=== PATIENT | male | born 1945 | race Caucasian/White ===

== ENCOUNTER 2021-03-15 14:06 | Inpatient (IN) ==
[2021-03-15] MEDS ORDERED: DEXAMETHASONE 10 MG/ML VIAL IV ONE (14:16)
[2021-03-15] MEDS ORDERED: KETOROLAC 30 MG/ML VIAL IV ONE (14:16)
[2021-03-15] MEDS ORDERED: 0.9 % SODIUM CHLORIDE 1,000 ML IV ONE ×2 (14:42→15:54)
[2021-03-15] MEDS ORDERED: ALBUTEROL SULFATE 200 PUFF INHALER INH ONE (14:59)
--- NOTE | 2021-03-15 14:59 | Emergency Department Note ---
SOB HPI General Chief Complaint: Shortness of Breath/Dyspnea Stated Complaint: Shortness of breath Time Seen by Provider: 03/15/21 14:08 Source: patient and RN notes reviewed Mode of arrival: ambulatory Limitations: no limitations History of Present Illness HPI Narrative: Narrative: 75-year-old male complaining of severe shortness of breath. 75-year-old male complaining of worsening shortness of breath x5 days. He was exposed to Covid 5 days ago. He has not been vaccinated. Complains of shortness of breath with fevers and chills cough nonproductive sputum worsening today to the point where he can only speak 1-2 word sentences. Complaint: shortness of breath Onset (ago): day(s) (5) Context: recent illness Severity: severe Consistency/Duration: constant Improves with: oxygen Worsens with: coughing Treatment prior to arrival: oxygen Related Data Allergies Allergy/AdvReac Type Severity Reaction Status Date / Time No Known Drug Allergies Allergy Unverified 03/15/21 14:07 Review of Systems ROS ROS Narrative: Narrative: Limitations: ROS unobtainable due to patients medical condition [facility] Narrative Patient History Narrative: Narrative: Medical/Surgical/Family History All Active Problems (Updated 03/15/21 @ 15:54 by Jaxson Han MD) Pneumonia due to 2019 novel coronavirus (Acute) Acute renal insufficiency (Acute) Elevated troponin (Acute) Hypoxia (Acute) Anemia (Acute) Social History Smoking Status: Unknown if ever smoked Exam Narrative Narrative: Narrative: General Limitations: no limitations General appearance: Present alert, in distress, malaise and obese Head Head: Present atraumatic, normocephalic and normal inspection Eye Eye: Present normal appearance, PERRL and EOMI ENT ENT: Present normal exam and mucous membranes dry Neck Neck: Present normal inspection and full ROM Chest Chest: Present normal inspection; Absent tenderness Respiratory Respiratory: Present respiratory distress, wheezes and decreased breath sounds Cardiovascular Cardiovascular: Present regular rate, normal rhythm and systolic murmur Adbominal Abdominal: Present soft; Absent distention, tenderness, guarding and rebound Extremities Extremities: Present normal inspection, full ROM, pedal edema and other (Chronic stasis changes to bilateral lower extremities); Absent tenderness, normal capillary refill and pretibial edema Back Back: Present normal inspection; Absent CVA tenderness (R) and CVA tenderness (L) Neurological Neurological: Present alert Psychiatric Psychiatric: Present agitated and anxious Skin Skin: Present rash and erythema Course Vital Signs Vital signs: Vital Signs Temperature 103.3 F H 03/15/21 14:07 Pulse Rate 77 03/15/21 14:07 Respiratory Rate 30 H 03/15/21 14:07 Blood Pressure 125/70 03/15/21 14:07 Pulse Oximetry (%) 96 03/15/21 14:07 Temperature 103.3 F H 03/15/21 14:07 Pulse Rate 62 03/15/21 15:14 Respiratory Rate 27 H 03/15/21 15:14 Blood Pressure 93/51 03/15/21 15:14 Pulse Oximetry (%) 93 03/15/21 15:14 MDM MDM Narrative Medical decision making narrative: Narrative: 75-year-old male who is hypoxic slightly hypotensive complaining of shortness of breath after Covid exposure 5 days ago with positive Covid. Chest x-ray shows Covid pneumonia cannot rule out congestive heart failure. He has mild anemia with an H&H of 12.9 and 38.8. Low blood sugar at 64 received p.o. juice. His BUN is 74 to a creatinine of 3.5 indicating acute renal insufficiency and dehydration. Patient received a liter of IV normal saline BMP is pending. Lactate is normal troponin is elevated at 0.04. Believe this represents cardiac leak he also has acute renal insufficiency I would elevate his troponin. Patient will require admission for IV fluids oxygenation and to monitor his renal insufficiency hypoxia and hypotension. Differential Diagnosis Differential Diagnosis: Pneumonia, Covid pneumonia, Covid, congestive heart failure ACS. Lab Data Lab results reviewed: Yes I reviewed the patient's lab results. Result diagrams: 03/15/21 14:24 03/15/21 14:23 Labs: Lab Results 03/15/21 03/15/21 Range/Units 14:23 14:24 WBC 5.8 (4.5-11.0) K/mcL RBC 4.22 L (4.63-6.08) M/mcL Hgb 12.9 L (13.7-17.5) g/dL Hct 38.8 L (40.1-51.0) % MCV 91.9 (80.0-100.0) fL MCH 30.6 (26.0-34.0) pg MCHC 33.2 (31.0-36.0) g/dL RDW 13.8 (11.5-14.5) % Plt Count 142 (140-440) K/mcL MPV 10.8 H (7.4-10.4) fL Neut % (Auto) 85.9 H (38.0-78.0) % Lymph % (Auto) 7.5 L (15.5-49.0) % [place] % (Auto) 5.9 (1.0-12.0) % Eos % (Auto) 0.5 (0.0-7.0) % Baso % (Auto) 0.2 (0.0-2.0) % Lymph # (Auto) 0.43 L (1.50-4.80) K/mcL [place] # (Auto) 0.34 (0.10-0.90) K/mcL Eos # (Auto) 0.03 (0.00-0.70) K/mcL Baso # (Auto) 0.01 (0.00-0.30) K/mcL Absolute Neutrophils 4.95 (1.80-8.00) K/mcL Sodium 133 (133-145) mmol/L Potassium 4.4 (3.3-5.1) mmol/L Chloride 95 L (96-108) mmol/L Carbon Dioxide 19 L (22-30) mmol/L Anion Gap 19.0 H (8.0-16.0) BUN 74 H (8-23) mg/dL Creatinine 3.5 H (0.7-1.2) mg/dL GFR Calculation 16 Glucose 64 L (70-105) mg/dL Calcium 8.3 L (8.6-10.4) mg/dL Total Bilirubin 0.5 (0.1-1.0) mg/dL AST 116 H (<40) U/L ALT 34 (<40) U/L Alkaline Phosphatase 46 (39-117) U/L Total Protein 7.6 (5.9-8.4) gm/dL Albumin 3.6 (3.2-5.2) gm/dL Globulin 4.0 H (2.2-3.7) gm/dL Albumin/Globulin Ratio 0.9 L (1.0-2.3) ED POC Tests ED POC Tests: IVAN - SARS Antigen Positive ABG on 15 L nonrebreather pH is 7.46 PCO2 of 27 PO2 of 72 bicarb of 19.2 Radiology Data Radiology results reviewed: Yes I reviewed the patient's radiology results. Radiology results narrative: Bilateral Covid pneumonia CXR IMPRESSION: Moderate pneumonia. Congestive heart failure cannot be excluded. Interpreted and Authenticated by: Guilherme Felipe 03/15/21 EKG Data EKG #1: EKG attestation: Yes I reviewed and interpreted this EKG. and Yes There are no EKG findings of acute coronary syndrome Rate: normal and bradycardia (50) Rhythm: A.Fib Q waves: III Ectopy: PVC Interpretation: no acute changes Pulse Oximetry Data Pulse Ox %: 95 Interpretation: 95% on 15 L nonrebreather is hypoxic. Discharge Plan Patient/Caregiver Discharge Instructions Pt seen by PIPELINE INTEGRITY ENGINEER/PA only: No Clinical Impression: Pneumonia due to 2019 novel coronavirus, Acute renal insufficiency, Elevated troponin, Hypoxia, Anemia Patient Disposition: Xfer As Inpt ([facility]) Follow up with: Tristan Palencia DO [Primary Care Provider] -
[2021-03-15 15:04] LABS: Basophils # (Auto) 0.01 K/mcL (0.00-0.30); Basophils % (Auto) 0.2 % (0.0-2.0); Eosinophils # (Auto) 0.03 K/mcL (0.00-0.70); Eosinophils % (Auto) 0.5 % (0.0-7.0); Hematocrit 38.8 % (40.1-51.0); Hemoglobin 12.9 g/dL (13.7-17.5); Lymphocytes # (Auto) 0.43 K/mcL (1.50-4.80); Lymphocytes % (Auto) 7.5 % (15.5-49.0); Mean Cell Volume 91.9 fL (80.0-100.0); Mean Corpuscular HGB Conc 33.2 g/dL (31.0-36.0); Mean Platelet Volume 10.8 fL (7.4-10.4); Monocytes # (Auto) 0.34 K/mcL (0.10-0.90); Monocytes % (Auto) 5.9 % (1.0-12.0); Neutrophils % (Auto) 85.9 % (38.0-78.0); Platelet Count 142 K/mcL (140-440); RBC 4.22 M/mcL (4.63-6.08); Red Cell Distribution Width 13.8 % (11.5-14.5); WBC 5.8 K/mcL (4.5-11.0)
--- NOTE | 2021-03-15 15:04 | XRay Report ---
HISTORY: Dyspnea FINDINGS: There are diffuse alveolar opacities throughout both lungs with the greatest involvement in the right lower lobe. Lung volumes are normal. There is no pleural effusion. Heart size is within normal limits. Patient may have underlying COPD. IMPRESSION: Moderate pneumonia. Congestive heart failure cannot be excluded. Interpreted and Authenticated by: Guilherme Felipe 03/15/21
[2021-03-15 15:27] LABS: ALT/SGPT 34 U/L (<40); AST/SGOT 116 U/L (<40); Albumin 3.6 gm/dL (3.2-5.2); Albumin/Globulin Ratio 0.9 (1.0-2.3); Alkaline Phosphatase 46 U/L (39-117); Bilirubin,Total 0.5 mg/dL (0.1-1.0); Blood Urea Nitrogen 74 mg/dL (8-23); Calcium 8.3 mg/dL (8.6-10.4); Carbon Dioxide 19 mmol/L (22-30); Chloride 95 mmol/L (96-108); Glomerular Filtration Rate 16; Glucose 64 mg/dL (70-105)
--- NOTE | 2021-03-15 16:44 | Internal Med History&Physical ---
HPI History of Present Illness Patient information: Note initiated : 03/15/21 at 4:40 pm Service Date, if different from initiated Date: [] Patient: Toni Thornton a 75 y/o M admitted on for Shortness of breath. Chief Complaint: [CoVID pneumonia] History of present illness: Mr. Thornton is a 75 year old M history of CAD status post 19 stent placement, type 2 diabetes mellitus, bladder cancer with right kidney involvement status post right nephrectomy, presenting with 1 week history of general body weakness, nonproductive cough, and decreased appetite. He is not being vaccinated against Covid pneumonia. Over the past week, he experienced general body weakness, nonproductive cough, and decreased appetite. He is also committing of generalized body aches. He denies shortness of breath. He denies respiratory wheezing. He denies fever, chills, or diaphoresis. Signs at ED presentation significant for tachypnea with rate of breathing in the mid 30s as well as fever with T-max of 39.6. Oxygen desaturated to the 80s and he was being placed on Nonrebreather oxygen. He was being tested positive for Covid pneumonia. Labs significant for lack of leukocytosis with WBC 5.8. Serum BUN/creatinine 724 and 3.5, respectively with unknown baseline. Serum glucose level 64. Chest x-ray showing typical findings of Covid pneumonia. Constitutional Constitutional: Present fever(s) and weakness; Absent chills, excessive sweating and fatigue Additional comments: loss of appetite EENT Eyes: Absent blurry vision, change in vision, loss of vision and other visual disturbances Ears: Absent decreased hearing and tinnitus Nose, mouth and throat: Absent abnormal hearing, dry mouth, headache(s), nasal congestion and sore throat Cardiovascular Cardiovascular: Absent chest pain, chest pain at rest, edema, irregular heart rhythm and palpatations Respiratory Respiratory: Present cough; Absent dyspnea, wheezing and excessive phlegm production Gastrointestinal Gastrointestinal: Absent abdominal pain, constipation, diarrhea, nausea and vomiting Musculoskeletal Musculoskeletal: Present muscle cramps and muscle weakness; Absent back pain, deformity, limited range of motion and numbness Integumentary Integumentary: Absent lesions, rash and wounds Neurological Neurological: Absent focal weakness, headache(s) and numbness Psychiatric Psychiatric: Absent anxiety, depression and hallucinations PFSH PFSH All Active Problems (Updated 09/11/21 @ 16:47 by Nabeel Rogers MD) Acute respiratory failure with hypoxia (Acute) CAD (coronary artery disease) (Acute) Anemia, normocytic normochromic (Acute) Hypoglycemia associated with type 2 diabetes mellitus (Acute) Stage 2 acute kidney injury (Acute) Pneumonia due to 2019 novel coronavirus (Acute) Acute renal insufficiency (Acute) Elevated troponin (Acute) Hypoxia (Acute) Anemia (Acute) MEDS/ALLERGIES Home Medications and Allergies Allergies Allergy/AdvReac Type Severity Reaction Status Date / Time No Known Drug Allergies Allergy Unverified 03/15/21 14:07 EXAM Constitutional Vitals: Temp Pulse Resp BP Pulse Ox 39.6 C H 64 25 H 99/52 94 03/15/21 14:07 03/15/21 15:31 03/15/21 15:31 03/15/21 15:31 03/15/21 15:31 General appearance: cooperative, disheveled, mild distress and obese Head Head exam: Present atraumatic and normocephalic Eye Eye exam: Present EOMI and PERRL ENT ENT exam: Present mucous membranes moist, normal exam and normal external ear exam Additional comments: nonrebreather in place Neck Neck exam: Present normal inspection; Absent lymphadenopathy, tenderness and thyromegaly Respiratory Respiratory exam: Present rhonchi; Absent accessory muscle use, respiratory distress and wheezes Cardiovascular Cardiovascular exam: Present normal rate and rhythm; Absent JVD GI/Abdominal GI/Abdominal exam: Present normal bowel sounds and soft; Absent organomegaly and tenderness Rectal Rectal exam: Present deferred Extremities Exam Extremities exam: Present full ROM, normal capillary refill and normal inspection; Absent tenderness Neurological Exam Neurological exam: Present alert, CN II-XII intact and oriented X3; Absent motor sensory deficit Psychiatric Psychiatric exam: Present normal affect and normal mood; Absent anxious and depressed Skin Skin exam: Present dry and intact DATA Data Completed and Pending Labs: Labs from last 24 hours 03/15/21 03/15/21 03/15/21 14:54 14:24 14:24 WBC 5.8 RBC 4.22 L Hgb 12.9 L Hct 38.8 L MCV 91.9 MCH 30.6 MCHC 33.2 RDW 13.8 Plt Count 142 MPV 10.8 H Neut % (Auto) 85.9 H Lymph % (Auto) 7.5 L [place] % (Auto) 5.9 Eos % (Auto) 0.5 Baso % (Auto) 0.2 Lymph # (Auto) 0.43 L [place] # (Auto) 0.34 Eos # (Auto) 0.03 Baso # (Auto) 0.01 Absolute Neutrophils 4.95 VBG Lactic Acid 1.1 Sodium Potassium Chloride Carbon Dioxide Anion Gap BUN Creatinine GFR Calculation Glucose Calcium Total Bilirubin AST ALT Alkaline Phosphatase Troponin T 0.04 H* NT-Pro-B Natriuret Pep Total Protein Albumin Globulin Albumin/Globulin Ratio 03/15/21 03/15/21 14:23 14:23 WBC RBC Hgb Hct MCV MCH MCHC RDW Plt Count MPV Neut % (Auto) Lymph % (Auto) [place] % (Auto) Eos % (Auto) Baso % (Auto) Lymph # (Auto) [place] # (Auto) Eos # (Auto) Baso # (Auto) Absolute Neutrophils VBG Lactic Acid Sodium 133 Potassium 4.4 Chloride 95 L Carbon Dioxide 19 L Anion Gap 19.0 H BUN 74 H Creatinine 3.5 H GFR Calculation 16 Glucose 64 L Calcium 8.3 L Total Bilirubin 0.5 AST 116 H ALT 34 Alkaline Phosphatase 46 Troponin T NT-Pro-B Natriuret Pep 581.5 H Total Protein 7.6 Albumin 3.6 Globulin 4.0 H Albumin/Globulin Ratio 0.9 L A/P Assessment and plan (1) Pneumonia due to 2019 novel coronavirus: Status: Acute (2) Stage 2 acute kidney injury: Status: Acute (3) Hypoglycemia associated with type 2 diabetes mellitus: Status: Acute (4) Anemia, normocytic normochromic: Status: Acute (5) CAD (coronary artery disease): Status: Acute (6) Acute respiratory failure with hypoxia: Status: Acute Narrative A/P Narrative: Assessment and Plans: 1. Acute respiratory failure with hypoxia associated with CoVID pneumonia: Admit to inpatient PCU Isolation: airborne and contact Inflammatory markers CXR every few days cbc w/ auto diff in the AM to trend WBC Blood culture Oxygen therapy titrate to achieve spo2>=92% Prone Remdesivir contraindicated in face of acute kidney injury and poor kidney fu nctions Dexamethasone Heparin Robitussin DM PRN cough DuoNEB NEB PRN wheezing Tylenol PRN fever 2. T2DM with hypoglycemia: HgA1c Hold any oral hypoglycemics Hold any scheduled insulin Low dose SSI AC HS Accu Chek AC HS Hypoglycemia protocol Diabetic diet 3. h/o CAD s/p 9 cardiac stents: ASA Statin 4. Stage 2 acute kidney injury: Unknown baseline serum Cr level Avoid nephrotoxic agents NS@100cc/hr CMP in the AM to trend kidney functions 5. Anemia, normocytic normochromic: cbc w/ auto diff in the AM to trend H/H; transfuse pRBC if hemoglobin <7.0, active bleeding, or symptomatic GI ppx: not currently indicated DVT ppx: Heparin Code status: Full Prognosis: guarded Disposition: inpatient PCU Time Spent With Patient Time: Total time spent is greater than 50% in coordination of care (as documented) at patient's floor/unit and/or counseling patient: Total time spent with greater than 50% in coordination of care (as documented) at patient's floor/unit and/or counseling patient:: Greater than 35 minutes
[2021-03-15] MEDS ORDERED: DEXTROSE 50% 50 ML VIAL IV PRN (17:22)
[2021-03-15] MEDS ORDERED: LACTULOSE 20 GM/30 ML ORAL.SOL PO PRN (17:22)
[2021-03-15] MEDS ORDERED: SENNOSIDES 1 TABLET PO PRN (17:22)
[2021-03-15] MEDS ORDERED: guaiFENesin/DEXTROMETHORPHAN ORAL SOL PO PRN (17:22)
[2021-03-15] MEDS ORDERED: IPRATROPIUM/ALBUTEROL 3 ML AMPUL.NEB NEB PRN (17:22)
[2021-03-15] MEDS ORDERED: DEXTROSE 31 GM ORAL.SUSP PO PRN (17:22)
[2021-03-15] MEDS ORDERED: ONDANSETRON 4 MG/2 ML VIAL IV PRN (17:22)
[2021-03-15 18:16] LABS: ALT/SGPT 35 U/L (<40); AST/SGOT 118 U/L (<40); Albumin 3.4 gm/dL (3.2-5.2); Albumin/Globulin Ratio 0.8 (1.0-2.3); Alkaline Phosphatase 46 U/L (39-117); Bilirubin,Total 0.4 mg/dL (0.1-1.0); Blood Urea Nitrogen 75 mg/dL (8-23); Calcium 8.2 mg/dL (8.6-10.4); Carbon Dioxide 18 mmol/L (22-30); Chloride 96 mmol/L (96-108); Globulin 4.3 gm/dL (2.2-3.7); Glomerular Filtration Rate 16; Glucose 64 mg/dL (70-105); Lactate Dehydrogenase 802 U/L (135-225)
[2021-03-15 18:32] LABS: Ferritin > 2000.0 ng/mL (30.0-400.0)
[2021-03-15] MEDS: INSULIN LISPRO 1 UNIT/0.01 ML UNIT SQ SCH ×2 (18:37→21:14)
[2021-03-15 18:46] LABS: Estimated Average Glucose(eAG) 151 mg/dL; Hemoglobin A1C 6.9 % Hgb (4.0-6.0)
[2021-03-15 19:36] LABS: INR 1.1 (0.9-1.1); Prothrombin Time 14.4 sec (11.9-14.5)
[2021-03-15] MEDS: 0.9 % SODIUM CHLORIDE 1,000 ML IV SCH (21:07)
[2021-03-15] MEDS: DOCUSATE SODIUM 100 MG CAPSULE PO SCH (21:08)
[2021-03-15] MEDS: HEPARIN 5,000 UNIT/ML VIAL SQ SCH (21:14)
[2021-03-15] MEDS: 0.9 % SODIUM CHLORIDE 10 ML SYRINGE IV SCH (21:15)
[2021-03-15] MEDS ORDERED: INSULIN LISPRO 1 UNIT/0.01 ML UNIT SQ ONE (21:16)
[2021-03-15] MEDS ORDERED: HEPARIN 5,000 UNIT/ML VIAL ONE (21:16)
[2021-03-15 22:05] LABS: Appearance,Urine HAZY (Clear); Bilirubin,Urine Negative (Negative); Color,Urine YELLOW; Culture Indicated,Urine No; Glucose,Urine (UA) Negative (Negative); Ketones,Urine Negative (Negative); Leukocyte Esterase,Urine Negative /ug (Negative); Mucus,Urine FEW /hpf; Nitrate,Urine Negative (Negative); Protein,Urine 30 mg/dL (Negative); Specific Gravity,Urine 1.009 (1.000-1.035); Urine Blood 0.03 mg/dL (Negative); Urine RBC 0 /hpf (0-3); Urine Squamous Epithelial Cell < 1 /hpf (0-4); Urine WBC 1 /hpf (0-4); Urobilinogen,Urine Negative
[2021-03-16] MEDS: 0.9 % SODIUM CHLORIDE 1,000 ML IV SCH ×5 (03:30→21:52)
[2021-03-16] MEDS: 0.9 % SODIUM CHLORIDE 10 ML SYRINGE IV SCH ×3 (05:31→21:28)
[2021-03-16] MEDS: INSULIN LISPRO 1 UNIT/0.01 ML UNIT SQ SCH ×4 (07:15→21:27)
[2021-03-16 07:23] LABS: ALT/SGPT 30 U/L (<40); AST/SGOT 96 U/L (<40); Albumin 2.8 gm/dL (3.2-5.2); Albumin/Globulin Ratio 0.8 (1.0-2.3); Alkaline Phosphatase 39 U/L (39-117); Bilirubin,Total 0.3 mg/dL (0.1-1.0); Blood Urea Nitrogen 63 mg/dL (8-23); Calcium 7.9 mg/dL (8.6-10.4); Carbon Dioxide 19 mmol/L (22-30); Chloride 106 mmol/L (96-108); Globulin 3.6 gm/dL (2.2-3.7); Glomerular Filtration Rate 21; Glucose 183 mg/dL (70-105)
[2021-03-16 08:34] LABS: Basophils # (Auto) 0 K/mcL (0.00-0.30); Basophils % (Auto) 0 % (0.0-2.0); Eosinophils # (Auto) 0 K/mcL (0.00-0.70); Eosinophils % (Auto) 0 % (0.0-7.0); Hematocrit 38.2 % (40.1-51.0); Hemoglobin 11.9 g/dL (13.7-17.5); Lymphocytes # (Auto) 0.43 K/mcL (1.50-4.80); Lymphocytes % (Auto) 9.4 % (15.5-49.0); Mean Cell Volume 98.7 fL (80.0-100.0); Mean Corpuscular HGB Conc 31.2 g/dL (31.0-36.0); Mean Platelet Volume 10.9 fL (7.4-10.4); Monocytes # (Auto) 0.26 K/mcL (0.10-0.90); Monocytes % (Auto) 5.7 % (1.0-12.0); Neutrophils % (Auto) 84.9 % (38.0-78.0); Platelet Count 117 K/mcL (140-440); RBC 3.87 M/mcL (4.63-6.08); Red Cell Distribution Width 14.1 % (11.5-14.5); WBC 4.6 K/mcL (4.5-11.0)
[2021-03-16] MEDS: DEXAMETHASONE 10 MG/ML VIAL IV SCH (08:39)
[2021-03-16] MEDS: ASPIRIN 81 MG TAB.CHEW PO SCH (08:39)
[2021-03-16] MEDS: DOCUSATE SODIUM 100 MG CAPSULE PO SCH ×2 (08:39→21:27)
[2021-03-16] MEDS: HEPARIN 5,000 UNIT/ML VIAL SQ SCH ×2 (08:40→21:27)
--- NOTE | 2021-03-16 08:53 | Internal Med Progress Note ---
SUBJECTIVE Subjective Patient information: Note initiated : 03/16/21 at 8:50 am Service Date, if different from initiated Date: [] Patient: Toni Thornton a 75 y/o M admitted on 03/15/21 for Shortness of breath. Chief Complaint: [CoVID pneumonia] Interval history: History of present illness: Mr. Thornton is a 75 year old M history of CAD status post 19 stent placement, type 2 diabetes mellitus, bladder cancer with right kidney involvement status post right nephrectomy, presenting with 1 week history of general body weakness, nonproductive cough, and decreased appetite. He is not being vaccinated against Covid pneumonia. Over the past week, he experienced general body weakness, nonproductive cough, and decreased appetite. He is also committing of generalized body aches. He denies shortness of breath. He denies respiratory wheezing. He denies fever, chills, or diaphoresis. Signs at ED presentation significant for tachypnea with rate of breathing in the mid 30s as well as fever with T-max of 39.6. Oxygen desaturated to the 80s and he was being placed on Nonrebreather oxygen. He was being tested positive for Covid pneumonia. Labs significant for lack of leukocytosis with WBC 5.8. Serum BUN/creatinine 724 and 3.5, respectively with unknown baseline. Serum glucose level 64. Chest x-ray showing typical findings of Covid pneumonia. 03/16: Afebrile overnight. Been on CPAP. Much improved degree of SOB. c/o nonproductive cough without sputum production. Denies any respiratory wheezing. Denies any fever or chills. Denies any chest pain. Constitutional Vitals: Vital Signs Temp Pulse Resp BP Pulse Ox 36.3 C 57 L 21 132/56 96 03/16/21 08:01 03/16/21 07:23 03/16/21 08:01 03/16/21 08:01 03/16/21 08:01 Period Temp Pulse Resp BP Sys/[place] Pulse Ox Last 24 Hr 36.3 C-39.6 C 54-86 7-32 71-147/46-70 89-97 Intake and Output 03/15/21 03/16/21 03/16/21 21:59 05:59 13:59 Intake Total 2000 400 1000 Output Total 450 600 200 Balance 1550 -200 800 Weight 99.382 kg Intake & Output: Intake & Output 03/15/21 03/16/21 03/16/21 21:59 05:59 13:59 Intake Total 1999 400 1000 Output Total 450 600 200 Balance 1550 -200 800 Weight 99.382 kg Intake: IV 1999 1000 Sodium Chloride 0.9% 1,000 ml @ 2000 1000 100 mls/hr IV .Q10H KIM Rx#: [id number] Oral 400 Output: Void Amount 450 600 200 Other: Meal Snack Percent of Meal Consumed 100% Feeding Ability Independent Urine Appearance Clear Clear Urine Color Straw Bright Yellow Bright Yellow Urine Odor Normal Normal General appearance: cooperative and no acute distress Head Head exam: Present atraumatic and normocephalic Eye Eye exam: Present EOMI and PERRL ENT ENT exam: Present mucous membranes moist, normal exam and normal external ear exam Additional comments: Nasal cannula in place Neck Neck exam: Present normal inspection; Absent lymphadenopathy, tenderness and thyromegaly Respiratory Respiratory exam: Present rhonchi; Absent accessory muscle use, respiratory distress and wheezes Cardiovascular Cardiovascular exam: Present normal rate and rhythm; Absent JVD GI/Abdominal GI/Abdominal exam: Present normal bowel sounds and soft; Absent organomegaly and tenderness Rectal Rectal exam: Present deferred Extremities Exam Extremities exam: Present full ROM, normal capillary refill and normal inspection; Absent tenderness Neurological Exam Neurological exam: Present alert, CN II-XII intact and oriented X3; Absent motor sensory deficit Psychiatric Psychiatric exam: Present normal affect and normal mood; Absent anxious and depressed Skin Skin exam: Present dry and intact OBJ DATA Labs CBC & Chem 7: 03/16/21 05:25 03/16/21 05:26 Labs: Abnormal Lab Results 03/16/21 03/16/21 03/15/21 05:26 05:25 21:15 RBC 3.87 L Hgb 11.9 L Hct 38.2 L Plt Count 117 L MPV 10.9 H Neut % (Auto) 84.9 H Lymph % (Auto) 9.4 L Lymph # (Auto) 0.43 L Fibrinogen D-Dimer Chloride Carbon Dioxide 19 L Anion Gap BUN 63 H Creatinine 2.8 H Glucose 183 H Hemoglobin A1c Calcium 7.9 L Ferritin AST 96 H Lactate Dehydrogenase Troponin T C-Reactive Protein NT-Pro-B Natriuret Pep Albumin 2.8 L Globulin Albumin/Globulin Ratio 0.8 L Procalcitonin Urine Appearance Hazy A Urine Protein 30 A Urine Mucus Few A 03/15/21 03/15/21 03/15/21 18:30 18:30 14:24 RBC Hgb Hct Plt Count MPV Neut % (Auto) Lymph % (Auto) Lymph # (Auto) Fibrinogen 640 H D-Dimer 1.64 H Chloride Carbon Dioxide Anion Gap BUN Creatinine Glucose Hemoglobin A1c Calcium Ferritin AST Lactate Dehydrogenase Troponin T 0.04 H* C-Reactive Protein NT-Pro-B Natriuret Pep Albumin Globulin Albumin/Globulin Ratio Procalcitonin Urine Appearance Urine Protein Urine Mucus 03/15/21 03/15/21 03/15/21 14:24 14:23 14:23 RBC 4.22 L Hgb 12.9 L Hct 38.8 L Plt Count MPV 10.8 H Neut % (Auto) 85.9 H Lymph % (Auto) 7.5 L Lymph # (Auto) 0.43 L Fibrinogen D-Dimer Chloride Carbon Dioxide 18 L Anion Gap 20.0 H BUN 75 H Creatinine 3.5 H Glucose 64 L Hemoglobin A1c 6.9 H Calcium 8.2 L Ferritin > 2000.0 H AST 118 H Lactate Dehydrogenase 802 H Troponin T C-Reactive Protein 10.70 H NT-Pro-B Natriuret Pep Albumin Globulin 4.3 H Albumin/Globulin Ratio 0.8 L Procalcitonin 0.32 H Urine Appearance Urine Protein Urine Mucus 03/15/21 03/15/21 14:23 14:23 RBC Hgb Hct Plt Count MPV Neut % (Auto) Lymph % (Auto) Lymph # (Auto) Fibrinogen D-Dimer Chloride 95 L Carbon Dioxide 19 L Anion Gap 19.0 H BUN 74 H Creatinine 3.5 H Glucose 64 L Hemoglobin A1c Calcium 8.3 L Ferritin AST 116 H Lactate Dehydrogenase Troponin T C-Reactive Protein NT-Pro-B Natriuret Pep 581.5 H Albumin Globulin 4.0 H Albumin/Globulin Ratio 0.9 L Procalcitonin Urine Appearance Urine Protein Urine Mucus Meds: Medications Acetaminophen (Acetaminophen 325 Mg Tablet) 650 mg PO Q6HP PRN; Protocol PRN Reason: Per Pain Protocol/Fever > 101 Albuterol/Ipratropium (Ipratropium/Albuterol 3 Ml Ampul.Neb) 3 ml NEB Q4HRT PRN PRN Reason: Wheezing Amlodipine Besylate (Amlodipine 10 Mg Tablet) 10 mg PO DAILY [facility] Aspirin (Aspirin 81 Mg Tab.Chew) 81 mg PO DAILY [facility] Last Admin: 03/16/21 08:39 Dose: 81 mg Documented by: Atenolol (Atenolol 50 Mg Tablet) 50 mg PO DAILY [facility] Atorvastatin Calcium (Atorvastatin 40 Mg Tablet) 40 mg PO DAILY [facility] Last Admin: 03/16/21 08:39 Dose: 40 mg Documented by: Clopidogrel Bisulfate (Clopidogrel 75 Mg Tablet) 75 mg PO QDAY [facility] Dexamethasone (Dexamethasone 10 Mg/Ml Vial) 6 mg IV DAILY [facility] Last Admin: 03/16/21 08:39 Dose: 6 mg Documented by: Dextrose (Dextrose 50% 50 Ml Vial) 0 ml IV UD PRN PRN Reason: Hypoglycemia Diagnostic Test (Pha) (Accu-Chek 1 Each Strip) [address] [facility] Last Admin: 03/16/21 07:14 Dose: 1 each Documented by: Docusate Sodium (Docusate Sodium 100 Mg Capsule) 100 mg PO BID [facility] Last Admin: 03/16/21 08:39 Dose: 100 mg Documented by: Furosemide (Furosemide 40 Mg Tablet) 40 mg PO BID [facility] Gabapentin (Gabapentin 100 Mg Capsule) 100 mg PO TID [facility] Glucose (Dextrose 31 Gm Oral.Susp) 15 gm PO PRN PRN PRN Reason: Hypoglycemia Guaifenesin (Guaifenesin/Dextromethorphan Oral [place]) 10 ml PO Q4HP PRN PRN Reason: Cough Heparin Sodium (Porcine) (Heparin 5,000 Unit/Ml Vial) 5,000 unit SQ Q12 [facility] Last Admin: 03/16/21 08:40 Dose: 5,000 unit Documented by: Sodium Chloride (Sodium Chloride 0.9%) 1,000 mls @ 100 mls/hr IV .Q10H [facility] Last Admin: 03/16/21 07:15 Dose: 100 mls/hr Documented by: Insulin Human Lispro (Insulin Lispro 1 Unit/0.01 Ml Unit) 0 unit SQ [facility]; Protocol Last Admin: 03/16/21 07:15 Dose: 1 units Documented by: Lactulose (Lactulose 20 Gm/30 Ml Oral.[place]) 10 gm PO DAILYP PRN PRN Reason: Constipation Non-Formulary Medication (Ticagrelor [Brilinta]) 60 mg PO BID [facility] Ondansetron HCl (Ondansetron 4 Mg/2 Ml Vial) 4 mg IV Q4HP PRN; Protocol PRN Reason: Nausea And Vomiting Pantoprazole Sodium (Pantoprazole 40 Mg Tablet) 40 mg PO DAILY [facility] Senna (Sennosides 1 Tablet) 2 tab PO HSP PRN PRN Reason: Constipation Simvastatin (Simvastatin 40 Mg Tablet) 40 mg PO DAILY [facility] Sodium Chloride (0.9 % Sodium Chloride 10 Ml Syringe) 10 ml IV Q8 [facility] Last Admin: 03/16/21 05:31 Dose: 10 ml Documented by: Tamsulosin HCl (Tamsulosin 0.4 Mg Capsule) 0.4 mg PO DAILY [facility] A/P Assessment and plan (1) Pneumonia due to 2019 novel coronavirus: Status: Acute (2) Stage 2 acute kidney injury: Status: Acute (3) Hypoglycemia associated with type 2 diabetes mellitus: Status: Acute (4) Anemia, normocytic normochromic: Status: Acute (5) CAD (coronary artery disease): Status: Acute (6) Acute respiratory failure with hypoxia: Status: Acute Narrative A/P Narrative: Assessment and Plans: 1. Acute respiratory failure with hypoxia associated with CoVID pneumonia: Stays in inpatient PCU Isolation: airborne and contact Inflammatory markers CXR every few days cbc w/ auto diff in the AM to trend WBC Blood culture Oxygen therapy titrate to achieve spo2>=92%, currently on CPAP Prone Remdesivir contraindicated in face of acute kidney injury and poor kidney functions Dexamethasone Heparin Robitussin DM PRN cough DuoNEB NEB PRN wheezing Tylenol PRN fever 2. T2DM with hypoglycemia: HgA1c Hold any oral hypoglycemics Hold any scheduled insulin Low dose SSI AC HS Accu Chek AC HS Hypoglycemia protocol Diabetic diet 3. h/o CAD s/p 9 cardiac stents: ASA Statin 4. Stage 2 acute kidney injury: Unknown baseline serum Cr level Avoid nephrotoxic agents NS@100cc/hr CMP in the AM to trend kidney functions 5. Anemia, normocytic normochromic: cbc w/ auto diff in the AM to trend H/H; transfuse pRBC if hemoglobin <7.0, active bleeding, or symptomatic GI ppx: not currently indicated DVT ppx: Heparin Code status: Full Prognosis: guarded Disposition: inpatient PCU Time Spent With Patient Time: Total time spent is greater than 50% in coordination of care (as documented) at patient's floor/unit and/or counseling patient: QUALITY VTE Deep Vein Thrombosis/Pulmonary Embolism Present on Admission: No
[2021-03-16] MEDS ORDERED: TICAGRELOR 60 MG PO SCH (09:00)
[2021-03-16] MEDS ORDERED: ATORVASTATIN 40 MG TABLET PO SCH (09:00)
[2021-03-16] MEDS: ATENOLOL 50 MG TABLET PO SCH (09:34)
[2021-03-16] MEDS: GABAPENTIN 100 MG CAPSULE PO SCH ×3 (09:34→21:26)
[2021-03-16] MEDS: amLODIPine 10 MG TABLET PO SCH (09:34)
[2021-03-16] MEDS: FUROSEMIDE 40 MG TABLET PO SCH ×2 (09:34→21:27)
[2021-03-16] MEDS: CLOPIDOGREL 75 MG TABLET PO SCH (09:34)
[2021-03-16] MEDS: TAMSULOSIN 0.4 MG CAPSULE PO SCH (09:34)
[2021-03-16] MEDS: PANTOPRAZOLE 40 MG TABLET PO SCH (09:35)
--- NOTE | 2021-03-16 18:53 | EKG ---
[facility] Test Date: 2021-03-15 Pat Name: Toni Thornton Department: ED Room: Gender: Male [employer]: : 1945 Requested By: Jaxson Han Order Number: [id number] Reading MD: Lukas Morgan Measurements Intervals Hermann Rate: 71 P: SC: QRS: 6 QRSD: 74 T: 35 QT: 404 QTc: 439 Interpretive Statements Sinus rhythm with PAC Electronically Signed On 03-16-2021 18:52:57 PDT by Lukas Morgan /store/[email or web address]/[id number]/[id number]
[2021-03-16] MEDS: Ticagrelor [Brilinta] 90 mg Tab PO SCH (21:24)
[2021-03-16] MEDS: SIMVASTATIN 40 MG TABLET PO SCH (21:27)
[2021-03-17] MEDS: 0.9 % SODIUM CHLORIDE 1,000 ML IV SCH ×4 (04:57→21:38)
[2021-03-17] MEDS: 0.9 % SODIUM CHLORIDE 10 ML SYRINGE IV SCH ×3 (04:57→21:37)
[2021-03-17] MEDS: ACETAMINOPHEN 325 MG TABLET PO PRN (07:42)
[2021-03-17] MEDS: PANTOPRAZOLE 40 MG TABLET PO SCH (07:42)
[2021-03-17] MEDS: INSULIN LISPRO 1 UNIT/0.01 ML UNIT SQ SCH ×5 (07:51→21:35)
[2021-03-17] MEDS ORDERED: DEXTROSE 31 GM ORAL.SUSP PO PRN (08:12)
[2021-03-17] MEDS ORDERED: DEXTROSE 50% 50 ML VIAL IV PRN (08:12)
--- NOTE | 2021-03-17 08:17 | Internal Med Progress Note ---
SUBJECTIVE Subjective Patient information: Note initiated : 03/17/21 at 8:12 am Service Date, if different from initiated Date: [] Patient: Toni Thornton a 75 y/o M admitted on 03/15/21 for Shortness of breath. Chief Complaint: [CoVID pneumonia] Interval history: History of present illness: Mr. Thornton is a 75 year old M history of CAD status post 19 stent placement, type 2 diabetes mellitus, bladder cancer with right kidney involvement status post right nephrectomy, presenting with 1 week history of general body weakness, nonproductive cough, and decreased appetite. He is not being vaccinated against Covid pneumonia. Over the past week, he experienced general body weakness, nonproductive cough, and decreased appetite. He is also committing of generalized body aches. He denies shortness of breath. He denies respiratory wheezing. He denies fever, chills, or diaphoresis. Signs at ED presentation significant for tachypnea with rate of breathing in the mid 30s as well as fever with T-max of 39.6. Oxygen desaturated to the 80s and he was being placed on Nonrebreather oxygen. He was being tested positive for Covid pneumonia. Labs significant for lack of leukocytosis with WBC 5.8. Serum BUN/creatinine 724 and 3.5, respectively with unknown baseline. Serum glucose level 64. Chest x-ray showing typical findings of Covid pneumonia. 03/16: Afebrile overnight. Been on CPAP. Much improved degree of SOB. c/o nonproductive cough without sputum production. Denies any respiratory wheezing. Denies any fever or chills. Denies any chest pain. 03/17: Afebrile overnight. Been on CPAP now with FiO2 60%. c/o mild SOB. c/o nonproductive cough without sputum production. Denies any respiratory wheezing. Denies any fever or chills. Denies any chest pain. Constitutional Vitals: Vital Signs Temp Pulse Resp BP Pulse Ox 36.8 C 63 20 147/71 94 03/17/21 08:02 03/17/21 06:02 03/17/21 08:02 03/17/21 08:02 03/17/21 08:02 Period Temp Pulse Resp BP Sys/[place] Pulse Ox Last 24 Hr 36.2 C-36.8 C 52-68 17-29 96-155/45-90 90-98 Intake and Output 03/16/21 03/17/21 03/17/21 21:59 05:59 13:59 Intake Total 1710 1200 Output Total 551 603 351 Balance 1159 597 -351 Weight 99.382 kg Intake & Output: Intake & Output 03/16/21 03/17/21 03/17/21 21:59 05:59 13:59 Intake Total 1710 1200 Output Total 551 603 351 Balance 1159 597 -351 Weight 99.382 kg Intake: Nourishment/Supplement quantity 240 (ml) IV 1000 1000 Sodium Chloride 0.9% 1,000 ml @ 1000 1000 100 mls/hr IV .Q10H [facility] Rx#: [id number] Oral 470 200 Output: Void Amount 550 600 350 # of times incontinent of urine 1 3 1 Other: Meal Dinner Percent of Meal Consumed 100% Feeding Ability Assist with Tray Set Up Nourishment/Supplement name Glucerna Urine Appearance Clear Clear Clear Urine Color Bright Yellow Bright Yellow Pale Urine Odor Normal Normal # Voids 1 General appearance: cooperative and no acute distress Head Head exam: Present atraumatic and normocephalic Eye Eye exam: Present EOMI and PERRL ENT ENT exam: Present mucous membranes moist, normal exam and normal external ear exam Additional comments: CPAP in place Neck Neck exam: Present normal inspection; Absent lymphadenopathy, tenderness and thyromegaly Respiratory Respiratory exam: Present rhonchi; Absent accessory muscle use, respiratory distress and wheezes Cardiovascular Cardiovascular exam: Present normal rate and rhythm; Absent JVD GI/Abdominal GI/Abdominal exam: Present normal bowel sounds and soft; Absent organomegaly and tenderness Rectal Rectal exam: Present deferred Extremities Exam Extremities exam: Present full ROM, normal capillary refill and normal inspection; Absent tenderness Neurological Exam Neurological exam: Present alert, CN II-XII intact and oriented X3; Absent motor sensory deficit Psychiatric Psychiatric exam: Present normal affect and normal mood; Absent anxious and depressed Skin Skin exam: Present dry and intact OBJ DATA Labs CBC & Chem 7: 03/16/21 05:25 03/16/21 05:26 Labs: Abnormal Lab Results 03/16/21 03/16/21 03/15/21 05:26 05:25 21:15 RBC 3.87 L Hgb 11.9 L Hct 38.2 L Plt Count 117 L MPV 10.9 H Neut % (Auto) 84.9 H Lymph % (Auto) 9.4 L Lymph # (Auto) 0.43 L Fibrinogen D-Dimer Chloride Carbon Dioxide 19 L Anion Gap BUN 63 H Creatinine 2.8 H Glucose 183 H Hemoglobin A1c Calcium 7.9 L Ferritin AST 96 H Lactate Dehydrogenase Troponin T C-Reactive Protein NT-Pro-B Natriuret Pep Albumin 2.8 L Globulin Albumin/Globulin Ratio 0.8 L Procalcitonin Urine Appearance Hazy A Urine Protein 30 A Urine Mucus Few A 03/15/21 03/15/21 03/15/21 18:30 18:30 14:24 RBC Hgb Hct Plt Count MPV Neut % (Auto) Lymph % (Auto) Lymph # (Auto) Fibrinogen 640 H D-Dimer 1.64 H Chloride Carbon Dioxide Anion Gap BUN Creatinine Glucose Hemoglobin A1c Calcium Ferritin AST Lactate Dehydrogenase Troponin T 0.04 H* C-Reactive Protein NT-Pro-B Natriuret Pep Albumin Globulin Albumin/Globulin Ratio Procalcitonin Urine Appearance Urine Protein Urine Mucus 03/15/21 03/15/21 03/15/21 14:24 14:23 14:23 RBC 4.22 L Hgb 12.9 L Hct 38.8 L Plt Count MPV 10.8 H Neut % (Auto) 85.9 H Lymph % (Auto) 7.5 L Lymph # (Auto) 0.43 L Fibrinogen D-Dimer Chloride Carbon Dioxide 18 L Anion Gap 20.0 H BUN 75 H Creatinine 3.5 H Glucose 64 L Hemoglobin A1c 6.9 H Calcium 8.2 L Ferritin > 2000.0 H AST 118 H Lactate Dehydrogenase 802 H Troponin T C-Reactive Protein 10.70 H NT-Pro-B Natriuret Pep Albumin Globulin 4.3 H Albumin/Globulin Ratio 0.8 L Procalcitonin 0.32 H Urine Appearance Urine Protein Urine Mucus 03/15/21 03/15/21 14:23 14:23 RBC Hgb Hct Plt Count MPV Neut % (Auto) Lymph % (Auto) Lymph # (Auto) Fibrinogen D-Dimer Chloride 95 L Carbon Dioxide 19 L Anion Gap 19.0 H BUN 74 H Creatinine 3.5 H Glucose 64 L Hemoglobin A1c Calcium 8.3 L Ferritin AST 116 H Lactate Dehydrogenase Troponin T C-Reactive Protein NT-Pro-B Natriuret Pep 581.5 H Albumin Globulin 4.0 H Albumin/Globulin Ratio 0.9 L Procalcitonin Urine Appearance Urine Protein Urine Mucus Meds: Medications Acetaminophen (Acetaminophen 325 Mg Tablet) 650 mg PO Q6HP PRN; Protocol PRN Reason: Per Pain Protocol/Fever > 101 Last Admin: 03/17/21 07:42 Dose: 650 mg Documented by: Albuterol/Ipratropium (Ipratropium/Albuterol 3 Ml Ampul.Neb) 3 ml NEB Q4HRT PRN PRN Reason: Wheezing Amlodipine Besylate (Amlodipine 10 Mg Tablet) 10 mg PO DAILY [facility] Last Admin: 03/16/21 09:34 Dose: 10 mg Documented by: Aspirin (Aspirin 81 Mg Tab.Chew) 81 mg PO DAILY [facility] Last Admin: 03/16/21 08:39 Dose: 81 mg Documented by: Atenolol (Atenolol 50 Mg Tablet) 50 mg PO DAILY [facility] Last Admin: 03/16/21 09:34 Dose: 50 mg Documented by: Clopidogrel Bisulfate (Clopidogrel 75 Mg Tablet) 75 mg PO QDAY [facility] Last Admin: 03/16/21 09:34 Dose: 75 mg Documented by: Dexamethasone (Dexamethasone 10 Mg/Ml Vial) 6 mg IV DAILY [facility] Last Admin: 03/16/21 08:39 Dose: 6 mg Documented by: Dextrose (Dextrose 50% 50 Ml Vial) 0 ml IV UD PRN PRN Reason: Hypoglycemia Diagnostic Test (Pha) (Accu-Chek 1 Each Strip) 1 each FS ACHS [facility] Last Admin: 03/17/21 07:48 Dose: 1 each Documented by: Docusate Sodium (Docusate Sodium 100 Mg Capsule) 100 mg PO BID [facility] Last Admin: 03/16/21 21:27 Dose: 100 mg Documented by: Furosemide (Furosemide 40 Mg Tablet) 40 mg PO BID [facility] Last Admin: 03/16/21 21:27 Dose: 40 mg Documented by: Gabapentin (Gabapentin 100 Mg Capsule) 100 mg PO TID [facility] Last Admin: 03/16/21 21:26 Dose: 100 mg Documented by: Glucose (Dextrose 31 Gm Oral.Susp) 15 gm PO PRN PRN PRN Reason: Hypoglycemia Guaifenesin (Guaifenesin/Dextromethorphan Oral [place]) 10 ml PO Q4HP PRN PRN Reason: Cough Heparin Sodium (Porcine) (Heparin 5,000 Unit/Ml Vial) 5,000 unit SQ Q12 [facility] Last Admin: 03/16/21 21:27 Dose: 5,000 unit Documented by: Sodium Chloride (Sodium Chloride 0.9%) 1,000 mls @ 100 mls/hr IV .Q10H [facility] Last Admin: 03/17/21 04:57 Dose: 100 mls/hr Documented by: Lactulose (Lactulose 20 Gm/30 Ml Oral.[place]) 10 gm PO DAILYP PRN PRN Reason: Constipation Ticagrelor [Brilinta (] 90 Mg Tab) 90 mg PO BID [facility] Last Admin: 03/16/21 21:24 Dose: 90 mg Documented by: Ondansetron HCl (Ondansetron 4 Mg/2 Ml Vial) 4 mg IV Q4HP PRN; Protocol PRN Reason: Nausea And Vomiting Pantoprazole Sodium (Pantoprazole 40 Mg Tablet) 40 mg PO QAMAC [facility] Last Admin: 03/17/21 07:42 Dose: 40 mg Documented by: Senna (Sennosides 1 Tablet) 2 tab PO HSP PRN PRN Reason: Constipation Simvastatin (Simvastatin 40 Mg Tablet) 40 mg PO HS [facility] Last Admin: 03/16/21 21:27 Dose: 40 mg Documented by: Sodium Chloride (0.9 % Sodium Chloride 10 Ml Syringe) 10 ml IV Q8 [facility] Last Admin: 03/17/21 04:57 Dose: 10 ml Documented by: Tamsulosin HCl (Tamsulosin 0.4 Mg Capsule) 0.4 mg PO DAILY [facility] Last Admin: 03/16/21 09:34 Dose: 0.4 mg Documented by: A/P Assessment and plan (1) Pneumonia due to 2019 novel coronavirus: Status: Acute (2) Stage 2 acute kidney injury: Status: Acute (3) Hypoglycemia associated with type 2 diabetes mellitus: Status: Acute (4) Anemia, normocytic normochromic: Status: Acute (5) CAD (coronary artery disease): Status: Acute (6) Acute respiratory failure with hypoxia: Status: Acute Narrative A/P Narrative: Assessment and Plans: 1. Acute respiratory failure with hypoxia associated with CoVID pneumonia: Stays in inpatient PCU Isolation: airborne and contact Inflammatory markers CXR every few days cbc w/ auto diff in the AM to trend WBC Blood culture Oxygen therapy titrate to achieve spo2>=92%, currently on CPAP Prone f/u kidney functions in order to consider starting Remdesivir Dexamethasone Heparin Robitussin DM PRN cough DuoNEB NEB PRN wheezing Tylenol PRN fever 2. T2DM with hypoglycemia: HgA1c Hold any oral hypoglycemics Hold any scheduled insulin High dose SSI AC HS for better glycemic coverage Accu Chek AC HS Hypoglycemia protocol Diabetic diet 3. h/o CAD s/p 9 cardiac stents: ASA Statin 4. Stage 2 acute kidney injury: Unknown baseline serum Cr level Avoid nephrotoxic agents NS@100cc/hr CMP in the AM to trend kidney functions 5. Anemia, normocytic normochromic: cbc w/ auto diff in the AM to trend H/H; transfuse pRBC if hemoglobin <7.0, active bleeding, or symptomatic GI ppx: not currently indicated DVT ppx: Heparin Code status: Full Prognosis: guarded Disposition: inpatient PCU Time Spent With Patient Time: Total time spent is greater than 50% in coordination of care (as documented) at patient's floor/unit and/or counseling patient: QUALITY VTE Deep Vein Thrombosis/Pulmonary Embolism Present on Admission: No
[2021-03-17 08:52] LABS: ALT/SGPT 46 U/L (<40); AST/SGOT 107 U/L (<40); Albumin 2.8 gm/dL (3.2-5.2); Albumin/Globulin Ratio 0.7 (1.0-2.3); Alkaline Phosphatase 62 U/L (39-117); Bilirubin,Total 0.4 mg/dL (0.1-1.0); Blood Urea Nitrogen 60 mg/dL (8-23); Calcium 8.4 mg/dL (8.6-10.4); Carbon Dioxide 19 mmol/L (22-30); Chloride 105 mmol/L (96-108); Globulin 4.3 gm/dL (2.2-3.7); Glomerular Filtration Rate 26; Glucose 237 mg/dL (70-105)
[2021-03-17] MEDS ORDERED: REMDESIVIR 200 MG in 0.9 % SODIUM CHLORIDE 250 ML IV ONE (09:00)
[2021-03-17 09:18] LABS: Basophils # (Auto) 0.02 K/mcL (0.00-0.30); Basophils % (Auto) 0.2 % (0.0-2.0); Eosinophils # (Auto) 0 K/mcL (0.00-0.70); Eosinophils % (Auto) 0 % (0.0-7.0); Hemoglobin 13.3 g/dL (13.7-17.5); Lymphocytes # (Auto) 0.57 K/mcL (1.50-4.80); Mean Cell Volume 93.9 fL (80.0-100.0); Mean Corpuscular HGB Conc 33.3 g/dL (31.0-36.0); Mean Platelet Volume 10.3 fL (7.4-10.4); Monocytes # (Auto) 0.48 K/mcL (0.10-0.90); Monocytes % (Auto) 4.2 % (1.0-12.0); Neutrophils % (Auto) 90.6 % (38.0-78.0); Platelet Count 155 K/mcL (140-440); RBC 4.26 M/mcL (4.63-6.08); Red Cell Distribution Width 13.6 % (11.5-14.5); WBC 11.5 K/mcL (4.5-11.0)
[2021-03-17] MEDS: FUROSEMIDE 40 MG TABLET PO SCH (09:28)
[2021-03-17] MEDS: ASPIRIN 81 MG TAB.CHEW PO SCH (09:28)
[2021-03-17] MEDS: GABAPENTIN 100 MG CAPSULE PO SCH ×3 (09:28→21:07)
[2021-03-17] MEDS: TAMSULOSIN 0.4 MG CAPSULE PO SCH (09:28)
[2021-03-17] MEDS: DOCUSATE SODIUM 100 MG CAPSULE PO SCH ×2 (09:28→21:06)
[2021-03-17] MEDS: DEXAMETHASONE 10 MG/ML VIAL IV SCH (09:29)
[2021-03-17] MEDS: amLODIPine 10 MG TABLET PO SCH (09:31)
[2021-03-17] MEDS: HEPARIN 5,000 UNIT/ML VIAL SQ SCH ×2 (09:31→21:36)
--- NOTE | 2021-03-17 09:52 | XRay Report ---
HISTORY: Follow-up pneumonia with shortness of breath FINDINGS: Moderate diffuse alveolar infiltrates are present throughout both lungs. The lung volumes are normal. There is no lobar consolidation or pleural effusion. Heart size is upper limits of normal. Comparison with the prior chest x-ray done on 03/15/21 shows the pneumonia around the left hilum has become slightly worse. There has been little change in the right side. IMPRESSION: Moderate bilateral pneumonia, becoming worse around the left hilum Interpreted and Authenticated by: Guilherme Felipe 03/17/21
[2021-03-17] MEDS: Ticagrelor [Brilinta] 90 mg Tab PO SCH (11:05)
[2021-03-17] MEDS: CLOPIDOGREL 75 MG TABLET PO SCH (11:05)
[2021-03-17] MEDS: ATENOLOL 50 MG TABLET PO SCH (12:19)
[2021-03-17] MEDS ORDERED: FUROSEMIDE 40 MG TABLET PO SCH (16:00)
--- NOTE | 2021-03-17 17:15 | Internal Med Progress Note ---
SUBJECTIVE Subjective Patient information: Note initiated : 03/18/21 at 5:06 pm Service Date, if different from initiated Date: [] Patient: Toni Thornton a 75 y/o M admitted on 03/15/21 for Shortness of breath. Chief Complaint: [] Interval history: Mr. Thornton is a 75 year old M history of CAD status post 9 stent placement, type 2 diabetes mellitus, bladder cancer with right kidney involvement status post right nephrectomy, presenting with 1 week history of general body weakness, nonproductive cough, and decreased appetite. He is not being vaccinated against Covid pneumonia. Over the past week, he experienced general body weakness, myalgia, nonproductive cough, and decreased appetite. He denied shortness of breath fever, chills, or diaphoresis. Signs at ED presentation significant for tachypnea with rate of breathing in the mid 30s as well as fever with T-max of 39.6. Oxygen desaturated to the 80s and he was being placed on nonrebreather oxygen. Labs significant for lack of leukocytosis with WBC 5.8. Serum BUN/creatinine 724 and 3.5, respectively with unknown baseline. Serum glucose level 64. Chest x-ray showing typical findings of Covid pneumonia. 03/16: Afebrile overnight. Been on CPAP. Much improved degree of SOB. c/o non productive cough without sputum production. Denies any respiratory wheezing. Denies any fever or chills. Denies any chest pain. 03/17: Afebrile overnight. Been on CPAP now with FiO2 60%. c/o mild SOB. c/o nonproductive cough without sputum production. Denies any respiratory wheezing. Denies any fever or chills. Denies any chest pain. 03/18: On BiPAP, weaned to FiO2 50%, sodium trending up, the patient has not eaten in several days. Physical exam Head: Atraumatic, normal inspection. Eyes: normal appearance, no scleral icterus. Neck: full ROM Respiratory: BiPAP, does not appear to be in respiratory distress. Cardiovascular: normal rate and rhythm, S1, S2. GI/Abdominal: soft, nontender, no guarding. Extremities: full range of motion, nontender. Neurological: CN II-XII intact, intact motor, intact sensation. Psychiatric: confused Skin: warm, normal color Constitutional Vitals: Vital Signs Temp Pulse Resp BP Pulse Ox 96.9 F L 71 23 H 142/67 93 03/17/21 12:01 03/17/21 16:09 03/17/21 16:09 03/17/21 14:01 03/17/21 16:09 Period Temp Pulse Resp BP Sys/Marmolejo Pulse Ox Last 24 Hr 96.9 F-98.2 F 52-75 13-29 96-155/45-90 89-98 Intake and Output 03/17/21 03/17/21 03/17/21 05:59 13:59 21:59 Intake Total 1200 1072 Output Total 603 692 Balance 597 380 Weight 99.382 kg Patient Weight 03/18/21 05:59 Weight 99.382 kg Intake & Output: Intake & Output 03/17/21 03/17/21 03/17/21 05:59 13:59 21:59 Intake Total 1200 1072 Output Total 603 692 Balance 597 380 Weight 99.382 kg Intake: IV 1000 1072 Sodium Chloride 0.9% 1,000 ml @ 1000 822 100 mls/hr IV .Q10H [facility] Rx#: [id number] Veklury 200 mg In Sodium 250 Chloride 0.9% 250 ml @ 500 mls/ hr IV ONCE ONE Rx#:[id number] Oral 200 Output: Void Amount 600 690 # of times incontinent of urine 3 2 Other: Urine Appearance Clear Clear Urine Color Bright Yellow Bright Yellow Urine Odor Normal Normal # Voids 1 OBJ DATA Labs CBC & Chem 7: 03/18/21 07:04 03/18/21 07:03 Labs: Abnormal Lab Results 03/17/21 03/17/21 03/16/21 06:45 06:45 05:26 WBC 11.5 H RBC 4.26 L Hgb 13.3 L Hct 40.0 L Plt Count MPV Neut % (Auto) 90.6 H Lymph % (Auto) 5.0 L Lymph # (Auto) 0.57 L Absolute Neutrophils 10.44 H Fibrinogen D-Dimer Chloride Carbon Dioxide 19 L 19 L Anion Gap BUN 60 H 63 H Creatinine 2.3 H 2.8 H Glucose 237 H 183 H Hemoglobin A1c Calcium 8.4 L 7.9 L Ferritin AST 107 H 96 H ALT 46 H Lactate Dehydrogenase Troponin T C-Reactive Protein NT-Pro-B Natriuret Pep Albumin 2.8 L 2.8 L Globulin 4.3 H Albumin/Globulin Ratio 0.7 L 0.8 L Procalcitonin Urine Appearance Urine Protein Urine Mucus 03/16/21 03/15/21 03/15/21 05:25 21:15 18:30 WBC RBC 3.87 L Hgb 11.9 L Hct 38.2 L Plt Count 117 L MPV 10.9 H Neut % (Auto) 84.9 H Lymph % (Auto) 9.4 L Lymph # (Auto) 0.43 L Absolute Neutrophils Fibrinogen 640 H D-Dimer Chloride Carbon Dioxide Anion Gap BUN Creatinine Glucose Hemoglobin A1c Calcium Ferritin AST ALT Lactate Dehydrogenase Troponin T C-Reactive Protein NT-Pro-B Natriuret Pep Albumin Globulin Albumin/Globulin Ratio Procalcitonin Urine Appearance Hazy A Urine Protein 30 A Urine Mucus Few A 03/15/21 03/15/21 03/15/21 18:30 14:24 14:24 WBC RBC 4.22 L Hgb 12.9 L Hct 38.8 L Plt Count MPV 10.8 H Neut % (Auto) 85.9 H Lymph % (Auto) 7.5 L Lymph # (Auto) 0.43 L Absolute Neutrophils Fibrinogen D-Dimer 1.64 H Chloride Carbon Dioxide Anion Gap BUN Creatinine Glucose Hemoglobin A1c Calcium Ferritin AST ALT Lactate Dehydrogenase Troponin T 0.04 H* C-Reactive Protein NT-Pro-B Natriuret Pep Albumin Globulin Albumin/Globulin Ratio Procalcitonin Urine Appearance Urine Protein Urine Mucus 03/15/21 03/15/21 03/15/21 14:23 14:23 14:23 WBC RBC Hgb Hct Plt Count MPV Neut % (Auto) Lymph % (Auto) Lymph # (Auto) Absolute Neutrophils Fibrinogen D-Dimer Chloride Carbon Dioxide 18 L Anion Gap 20.0 H BUN 75 H Creatinine 3.5 H Glucose 64 L Hemoglobin A1c 6.9 H Calcium 8.2 L Ferritin > 2000.0 H AST 118 H ALT Lactate Dehydrogenase 802 H Troponin T C-Reactive Protein 10.70 H NT-Pro-B Natriuret Pep 581.5 H Albumin Globulin 4.3 H Albumin/Globulin Ratio 0.8 L Procalcitonin 0.32 H Urine Appearance Urine Protein Urine Mucus 03/15/21 14:23 WBC RBC Hgb Hct Plt Count MPV Neut % (Auto) Lymph % (Auto) Lymph # (Auto) Absolute Neutrophils Fibrinogen D-Dimer Chloride 95 L Carbon Dioxide 19 L Anion Gap 19.0 H BUN 74 H Creatinine 3.5 H Glucose 64 L Hemoglobin A1c Calcium 8.3 L Ferritin AST 116 H ALT Lactate Dehydrogenase Troponin T C-Reactive Protein NT-Pro-B Natriuret Pep Albumin Globulin 4.0 H Albumin/Globulin Ratio 0.9 L Procalcitonin Urine Appearance Urine Protein Urine Mucus Meds: Medications Acetaminophen (Acetaminophen 325 Mg Tablet) 650 mg PO Q6HP PRN; Protocol PRN Reason: Per Pain Protocol/Fever > 101 Last Admin: 03/17/21 07:42 Dose: 650 mg Documented by: Albuterol/Ipratropium (Ipratropium/Albuterol 3 Ml Ampul.Neb) 3 ml NEB Q4HRT PRN PRN Reason: Wheezing Amlodipine Besylate (Amlodipine 10 Mg Tablet) 10 mg PO DAILY [facility] Last Admin: 03/17/21 09:31 Dose: 10 mg Documented by: Aspirin (Aspirin 81 Mg Tab.Chew) 81 mg PO DAILY [facility] Last Admin: 03/17/21 09:28 Dose: 81 mg Documented by: Atenolol (Atenolol 25 Mg Tablet) 25 mg PO QDAY [facility] Dexamethasone (Dexamethasone 10 Mg/Ml Vial) 6 mg IV DAILY [facility] Last Admin: 03/17/21 09:29 Dose: 6 mg Documented by: Dextrose (Dextrose 50% 50 Ml Vial) 0 ml IV UD PRN PRN Reason: Hypoglycemia Dextrose (Dextrose 50% 50 Ml Vial) 0 ml IV UD PRN PRN Reason: Hypoglycemia Diagnostic Test (Pha) (Accu-Chek 1 Each Strip) 1 each FS ACHS [facility] Last Admin: 03/17/21 13:40 Dose: 1 each Documented by: Docusate Sodium (Docusate Sodium 100 Mg Capsule) 100 mg PO BID [facility] Last Admin: 03/17/21 09:28 Dose: 100 mg Documented by: Furosemide (Furosemide 40 Mg Tablet) 40 mg PO 08,16 [facility] Last Admin: 03/17/21 15:48 Dose: 40 mg Documented by: Gabapentin (Gabapentin 100 Mg Capsule) 100 mg PO TID [facility] Last Admin: 03/17/21 14:13 Dose: 100 mg Documented by: Glucose (Dextrose 31 Gm Oral.Susp) 15 gm PO PRN PRN PRN Reason: Hypoglycemia Glucose (Dextrose 31 Gm Oral.Susp) 15 gm PO PRN PRN PRN Reason: Hypoglycemia Guaifenesin (Guaifenesin/Dextromethorphan Oral [place]) 10 ml PO Q4HP PRN PRN Reason: Cough Heparin Sodium (Porcine) (Heparin 5,000 Unit/Ml Vial) 5,000 unit SQ Q12 [facility] Last Admin: 03/17/21 09:31 Dose: 5,000 unit Documented by: Sodium Chloride (Sodium Chloride 0.9%) 1,000 mls @ 100 mls/hr IV .Q10H [facility] Last Admin: 03/17/21 13:10 Dose: 100 mls/hr Documented by: REMDESIVIR 100 mg/ Sodium (Chloride) 250 mls @ 500 mls/hr IV Q24H [facility] Stop: 03/21/21 09:01 Insulin Human Lispro (Insulin Lispro 1 Unit/0.01 Ml Unit) 0 unit SQ ACHS [facility]; Protocol Last Admin: 03/17/21 11:41 Dose: Not Given Documented by: Lactulose (Lactulose 20 Gm/30 Ml Oral.[place]) 10 gm PO DAILYP PRN PRN Reason: Constipation Ondansetron HCl (Ondansetron 4 Mg/2 Ml Vial) 4 mg IV Q4HP PRN; Protocol PRN Reason: Nausea And Vomiting Pantoprazole Sodium (Pantoprazole 40 Mg Tablet) 40 mg PO QAMAC [facility] Last Admin: 03/17/21 07:42 Dose: 40 mg Documented by: Senna (Sennosides 1 Tablet) 2 tab PO HSP PRN PRN Reason: Constipation Simvastatin (Simvastatin 40 Mg Tablet) 40 mg PO HS [facility] Last Admin: 03/16/21 21:27 Dose: 40 mg Documented by: Sodium Chloride (0.9 % Sodium Chloride 10 Ml Syringe) 10 ml IV Q8 [facility] Last Admin: 03/17/21 13:20 Dose: 10 ml Documented by: Tamsulosin HCl (Tamsulosin 0.4 Mg Capsule) 0.4 mg PO DAILY [facility] Last Admin: 03/17/21 09:28 Dose: 0.4 mg Documented by: A/P Narrative A/P Narrative: Assessment: Mr. Thornton is a 75 year old M history of CAD status post 9 stent placements, type 2 diabetes mellitus, bladder cancer with right kidney involvement status post right nephrectomy who presented with a one week history of general body weakness, nonproductive cough, and decreased appetite and found to have severe COVID-19 pneumonia. #Acute hypoxic respiratory failure #Severe COVID-19 pneumonia #Acute kidney injury #Hypernatremia #Type 2 diabetes mellitus #CAD s/p multiple stents Plan -Dexamethasone and Remdesivir. -Oxygen supplementation. -Lantus and SSI-high. -Discontinue IV fluid today, follow renal function. -Follow sodium. -Holding Lasix for TESSIE. -Continue other essential home meds. -Consider enteral or parental nutrition. -DVT ppx: Heparin SQ -Code status: Merchandiser Seasonal Spent With Patient Time: Total time spent is greater than 50% in coordination of care (as documented) at patient's floor/unit and/or counseling patient: QUALITY VTE Deep Vein Thrombosis/Pulmonary Embolism Present on Admission: No
[2021-03-17] MEDS ORDERED: INSULIN LISPRO 1 UNIT/0.01 ML UNIT SQ SCH (17:43)
[2021-03-17] MEDS ORDERED: INSULIN GLARGINE, HUMAN 1 UNIT/0.01 ML SQ SCH (21:00)
[2021-03-17] MEDS: SIMVASTATIN 40 MG TABLET PO SCH (21:08)
[2021-03-17] MEDS: INSULIN GLARGINE, HUMAN 1 UNIT/0.01 ML SQ SCH (21:36)
[2021-03-18 01:51] LABS: ALT/SGPT 44 U/L (<40); AST/SGOT 91 U/L (<40); Albumin/Globulin Ratio 0.8 (1.0-2.3); Alkaline Phosphatase 64 U/L (39-117); Bilirubin,Total 0.4 mg/dL (0.1-1.0); Blood Urea Nitrogen 54 mg/dL (8-23); Calcium 8.6 mg/dL (8.6-10.4); Carbon Dioxide 20 mmol/L (22-30); Chloride 108 mmol/L (96-108); Glomerular Filtration Rate 33; Glucose 230 mg/dL (70-105)
[2021-03-18] MEDS: 0.9 % SODIUM CHLORIDE 10 ML SYRINGE IV SCH ×3 (05:46→20:56)
[2021-03-18] MEDS: DEXAMETHASONE 10 MG/ML VIAL IV SCH (06:00)
[2021-03-18] MEDS: INSULIN LISPRO 1 UNIT/0.01 ML UNIT SQ SCH ×4 (07:25→21:02)
[2021-03-18] MEDS: PANTOPRAZOLE 40 MG TABLET PO SCH (07:43)
[2021-03-18] MEDS: 0.9 % SODIUM CHLORIDE 1,000 ML IV SCH (08:14)
[2021-03-18] MEDS: ACETAMINOPHEN 325 MG TABLET PO PRN (08:43)
[2021-03-18] MEDS: ASPIRIN 81 MG TAB.CHEW PO SCH (08:43)
[2021-03-18] MEDS: HEPARIN 5,000 UNIT/ML VIAL SQ SCH ×2 (08:43→21:01)
[2021-03-18] MEDS: amLODIPine 10 MG TABLET PO SCH (08:43)
[2021-03-18] MEDS: ATENOLOL 25 MG TABLET PO SCH (08:43)
[2021-03-18] MEDS: DOCUSATE SODIUM 100 MG CAPSULE PO SCH ×2 (08:43→20:55)
[2021-03-18] MEDS: TAMSULOSIN 0.4 MG CAPSULE PO SCH (08:43)
[2021-03-18] MEDS: GABAPENTIN 100 MG CAPSULE PO SCH ×3 (08:43→20:55)
[2021-03-18 08:47] LABS: ALT/SGPT 44 U/L (<40); AST/SGOT 79 U/L (<40); Albumin 3.1 gm/dL (3.2-5.2); Albumin/Globulin Ratio 0.7 (1.0-2.3); Alkaline Phosphatase 69 U/L (39-117); Bilirubin,Total 0.4 mg/dL (0.1-1.0); Blood Urea Nitrogen 59 mg/dL (8-23); Calcium 8.7 mg/dL (8.6-10.4); Carbon Dioxide 21 mmol/L (22-30); Chloride 111 mmol/L (96-108); Globulin 4.2 gm/dL (2.2-3.7); Glomerular Filtration Rate 33; Glucose 143 mg/dL (70-105)
--- NOTE | 2021-03-18 08:56 | XRay Report ---
HISTORY: COVID pneumonia with shortness of breath FINDINGS: Patient has moderately severe alveolar infiltrate centrally in the right lung and moderate diffuse infiltrate in the left lung. The consolidation, especially in the right lung has become worse since 03/17/21. Lung volumes are normal. There is no pleural effusion or pneumothorax. The heart size is normal. IMPRESSION: Worsening bilateral pneumonia Interpreted and Authenticated by: Guilherme Felipe 03/18/21
[2021-03-18] MEDS: REMDESIVIR 100 MG in 0.9 % SODIUM CHLORIDE 250 ML IV SCH (09:17)
[2021-03-18 09:32] LABS: Basophils # (Auto) 0.04 K/mcL (0.00-0.30); Basophils % (Auto) 0.3 % (0.0-2.0); Eosinophils # (Auto) 0 K/mcL (0.00-0.70); Eosinophils % (Auto) 0 % (0.0-7.0); Hematocrit 44.2 % (40.1-51.0); Hemoglobin 14.4 g/dL (13.7-17.5); Lymphocytes # (Auto) 0.74 K/mcL (1.50-4.80); Lymphocytes % (Auto) 4.7 % (15.5-49.0); Mean Cell Volume 98.9 fL (80.0-100.0); Mean Corpuscular HGB Conc 32.6 g/dL (31.0-36.0); Mean Platelet Volume 10.2 fL (7.4-10.4); Monocytes # (Auto) 0.85 K/mcL (0.10-0.90); Monocytes % (Auto) 5.4 % (1.0-12.0); Neutrophils % (Auto) 89.6 % (38.0-78.0); Platelet Count 167 K/mcL (140-440); RBC 4.47 M/mcL (4.63-6.08); Red Cell Distribution Width 14.2 % (11.5-14.5); WBC 15.8 K/mcL (4.5-11.0)
[2021-03-18] MEDS ORDERED: TPN PER PHARMACY IV SCH (13:36)
[2021-03-18 14:34] LABS: Phosphorous 3.2 mg/dL (2.5-4.5)
[2021-03-18] MEDS ORDERED: [UNRECOGNIZED DRUG - OTHER] IV SCH (16:00)
[2021-03-18] MEDS ORDERED: CALCIUM GLUCONATE IV SCH (16:00)
[2021-03-18] MEDS ORDERED: POTASSIUM PHOSPHATE IV SCH (16:00)
[2021-03-18] MEDS ORDERED: MAGNESIUM SULFATE IV SCH (16:00)
[2021-03-18] MEDS: INSULIN GLARGINE, HUMAN 1 UNIT/0.01 ML SQ SCH (20:54)
[2021-03-18] MEDS: SIMVASTATIN 40 MG TABLET PO SCH (20:55)
[2021-03-18] MEDS ORDERED: ACETAMINOPHEN 1,000 MG/100 ML BAG IV PRN (23:11)
[2021-03-18] MEDS ORDERED: ACETAMINOPHEN 1,000 MG/100 ML BAG IV ONE (23:22)
[2021-03-19] MEDS: 0.9 % SODIUM CHLORIDE 10 ML SYRINGE IV SCH ×3 (05:08→21:38)
[2021-03-19 09:06] LABS: ALT/SGPT 50 U/L (<40); AST/SGOT 70 U/L (<40); Albumin 3.1 gm/dL (3.2-5.2); Albumin/Globulin Ratio 0.8 (1.0-2.3); Alkaline Phosphatase 84 U/L (39-117); Bilirubin,Direct < 0.2 mg/dL (0-0.3); Bilirubin,Total 0.4 mg/dL (0.1-1.0); Blood Urea Nitrogen 61 mg/dL (8-23); Calcium 8.5 mg/dL (8.6-10.4); Carbon Dioxide 21 mmol/L (22-30); Chloride 115 mmol/L (96-108); Glomerular Filtration Rate 31; Glucose 118 mg/dL (70-105); Lactate Dehydrogenase 994 U/L (135-225); Phosphorous 3.4 mg/dL (2.5-4.5); Triglycerides 93 mg/dL (<150); Uric Acid 13.2 mg/dL (2.5-8.0)
[2021-03-19 09:06] LABS: Basophils # (Auto) 0.05 K/mcL (0.00-0.30); Basophils % (Auto) 0.3 % (0.0-2.0); Eosinophils # (Auto) 0 K/mcL (0.00-0.70); Eosinophils % (Auto) 0 % (0.0-7.0); Hematocrit 42.4 % (40.1-51.0); Hemoglobin 13.7 g/dL (13.7-17.5); Lymphocytes # (Auto) 0.85 K/mcL (1.50-4.80); Lymphocytes % (Auto) 4.6 % (15.5-49.0); Mean Cell Volume 95.3 fL (80.0-100.0); Mean Corpuscular HGB Conc 32.3 g/dL (31.0-36.0); Mean Platelet Volume 10.2 fL (7.4-10.4); Monocytes # (Auto) 0.86 K/mcL (0.10-0.90); Monocytes % (Auto) 4.7 % (1.0-12.0); Neutrophils % (Auto) 90.4 % (38.0-78.0); Platelet Count 179 K/mcL (140-440); RBC 4.45 M/mcL (4.63-6.08); Red Cell Distribution Width 14.1 % (11.5-14.5); WBC 18.5 K/mcL (4.5-11.0)
[2021-03-19 09:07] LABS: ALT/SGPT 51 U/L (<40); AST/SGOT 70 U/L (<40); Albumin/Globulin Ratio 0.7 (1.0-2.3); Alkaline Phosphatase 83 U/L (39-117); Bilirubin,Total 0.4 mg/dL (0.1-1.0); Blood Urea Nitrogen 62 mg/dL (8-23); Calcium 8.5 mg/dL (8.6-10.4); Carbon Dioxide 21 mmol/L (22-30); Chloride 114 mmol/L (96-108); Globulin 4.1 gm/dL (2.2-3.7); Glomerular Filtration Rate 33; Glucose 119 mg/dL (70-105)
[2021-03-19] MEDS: INSULIN LISPRO 1 UNIT/0.01 ML UNIT SQ SCH ×4 (09:20→21:38)
[2021-03-19] MEDS: ASPIRIN 81 MG TAB.CHEW PO SCH (09:22)
[2021-03-19] MEDS: DOCUSATE SODIUM 100 MG CAPSULE PO SCH ×2 (09:22→21:29)
[2021-03-19] MEDS: amLODIPine 10 MG TABLET PO SCH (09:23)
[2021-03-19] MEDS: ATENOLOL 25 MG TABLET PO SCH (09:23)
[2021-03-19] MEDS: GABAPENTIN 100 MG CAPSULE PO SCH ×3 (09:24→21:38)
[2021-03-19] MEDS: TAMSULOSIN 0.4 MG CAPSULE PO SCH (09:24)
[2021-03-19] MEDS: PANTOPRAZOLE 40 MG TABLET PO SCH (09:24)
[2021-03-19] MEDS: HEPARIN 5,000 UNIT/ML VIAL SQ SCH ×2 (09:51→21:37)
[2021-03-19] MEDS: REMDESIVIR 100 MG in 0.9 % SODIUM CHLORIDE 250 ML IV SCH (09:51)
[2021-03-19] MEDS: DEXAMETHASONE 10 MG/ML VIAL IV SCH (09:51)
[2021-03-19] MEDS ORDERED: DEXTROSE 5%-NS 1,000 ML IV SCH (11:30)
[2021-03-19] MEDS: HYDROmorphone 0.5 MG/0.5 ML SYRINGE IV PRN ×2 (12:54→19:30)
[2021-03-19] MEDS ORDERED: HYDROCHLOROTHIAZIDE 12.5 MG CAPSULE PO ONE (15:30)
[2021-03-19] MEDS ORDERED: DEXTROSE 5% IN WATER 1,000 ML IV SCH (15:30)
--- NOTE | 2021-03-19 15:39 | Internal Med Progress Note ---
SUBJECTIVE Subjective Patient information: Note initiated : 03/19/21 at 3:22 pm Service Date, if different from initiated Date: [] Patient: Toni Thornton a 75 y/o M admitted on 03/15/21 for Shortness of breath. Chief Complaint: [] Interval history: Interval history: Mr. Thornton is a 75 year old M history of CAD status post 9 stent placement, type 2 diabetes mellitus, bladder cancer with right kidney involvement status post right nephrectomy, presenting with 1 week history of general body weakness, nonproductive cough, and decreased appetite. He is not being vaccinated against Covid pneumonia. Over the past week, he experienced general body weakness, myalgia, nonproductive cough, and decreased appetite. He denied shortness of breath fever, chills, or diaphoresis. Signs at ED presentation significant for tachypnea with rate of breathing in the mid 30s as well as fever with T-max of 39.6. Oxygen desaturated to the 80s and he was being placed on nonrebreather oxygen. Labs significant for lack of leukocytosis with WBC 5.8. Serum BUN/creatinine 724 and 3.5, respectively with unknown baseline. Serum glucose level 64. Chest x-ray showing typical findings of Covid pneumonia. 03/16: Afebrile overnight. Been on CPAP. Much improved degree of SOB. c/o nonproductive cough without sputum production. Denies any respiratory wheezing. Denies any fever or chills. Denies any chest pain. 03/17: Afebrile overnight. Been on CPAP now with FiO2 60%. c/o mild SOB. c/o nonproductive cough without sputum production. Denies any respiratory wheezing. Denies any fever or chills. Denies any chest pain. 03/18: On BiPAP, weaned to FiO2 50%, sodium trending up, the patient has not eaten in several days. *Goals of care discussed with the patient's sons. Family ok with starting total parental nutrition. Family will discuss code status, plan to discuss again with sons tomorrow by phone. 03/19: curretnly On Vapotherm At 80% FiO2 and flow rate of 50. Sodium Stable around 150 today. Physical exam: General: Alert, Awake, No acute Distress Eyes/N/T: EOMI, PERRL, MM Head/Neck: neck supple, normocephalic atraumatic CV: RRR, No murmurs, normal s1/s2 Pulm: nonlabored, on vapotherm, no wheezing Abd: soft, nontender, +BS x4 Ext: no clubbing/cyanosis/edema Neuro: Alert, no focal deficits, moves all extremities. does have confusion, Skin: warm/dry Constitutional Vitals: Vital Signs Temp Pulse Resp BP Pulse Ox 97.3 F 69 18 127/83 93 03/19/21 11:01 03/19/21 10:34 03/19/21 15:01 03/19/21 15:01 03/19/21 15:01 Period Temp Pulse Resp BP Sys/Marmoljeo Pulse Ox Last 24 Hr 97.0 F-97.4 F 62-76 14-25 127-150/62-95 88-96 Intake and Output 03/19/21 03/19/21 03/19/21 05:59 13:59 21:59 Intake Total 100 250 Output Total 925 500 Balance -825 -250 Intake & Output: Intake & Output 03/19/21 03/19/21 03/19/21 05:59 13:59 21:59 Intake Total 100 250 Output Total 925 500 Balance -825 -250 Intake: IV 100 250 Veklury 100 mg In Sodium 250 Chloride 0.9% 250 ml @ 500 mls/ hr IV Q24H [facility] Rx#:[id number] Oral 0 Output: Urine Catheter Amount 925 500 Other: Urine Appearance Clear Clear Urine Color Bright Yellow Bright Yellow Uretheral (Anthony) Bright Yellow Urine Odor Normal # Bowel Movements 0 OBJ DATA Labs CBC & Chem 7: 03/19/21 05:17 03/19/21 11:52 Labs: Abnormal Lab Results 03/19/21 03/19/21 03/19/21 11:52 11:52 11:52 WBC RBC Hgb Hct Neut % (Auto) Lymph % (Auto) Lymph # (Auto) Absolute Neutrophils Sodium 152 H Chloride Carbon Dioxide BUN Creatinine Glucose Uric Acid Calcium AST ALT Lactate Dehydrogenase C-Reactive Protein 6.10 H Albumin Globulin Albumin/Globulin Ratio Procalcitonin 0.26 H 03/19/21 03/19/21 03/19/21 05:50 05:17 05:16 WBC 18.5 H RBC 4.45 L Hgb Hct Neut % (Auto) 90.4 H Lymph % (Auto) 4.6 L Lymph # (Auto) 0.85 L Absolute Neutrophils 16.73 H Sodium 150 H 151 H Chloride 114 H 115 H Carbon Dioxide 21 L 21 L BUN 62 H 61 H Creatinine 1.9 H 2.0 H Glucose 119 H 118 H Uric Acid 13.2 H Calcium 8.5 L 8.5 L AST 70 H 70 H ALT 51 H 50 H Lactate Dehydrogenase 994 H C-Reactive Protein Albumin 3.0 L 3.1 L Globulin 4.1 H 4.0 H Albumin/Globulin Ratio 0.7 L 0.8 L Procalcitonin 03/18/21 03/18/21 03/18/21 13:24 07:04 07:04 WBC 15.8 H RBC 4.47 L Hgb Hct Neut % (Auto) 89.6 H Lymph % (Auto) 4.7 L Lymph # (Auto) 0.74 L Absolute Neutrophils 14.14 H Sodium 147 H Chloride Carbon Dioxide BUN Creatinine Glucose Uric Acid Calcium AST ALT Lactate Dehydrogenase C-Reactive Protein Albumin Globulin Albumin/Globulin Ratio Procalcitonin 0.20 H 03/18/21 03/18/21 03/17/21 07:04 07:03 20:47 WBC RBC Hgb Hct Neut % (Auto) Lymph % (Auto) Lymph # (Auto) Absolute Neutrophils Sodium 146 H Chloride 111 H Carbon Dioxide 21 L 20 L BUN 59 H 54 H Creatinine 1.9 H 1.9 H Glucose 143 H 230 H Uric Acid Calcium AST 79 H 91 H ALT 44 H 44 H Lactate Dehydrogenase C-Reactive Protein 8.50 H Albumin 3.1 L 3.0 L Globulin 4.2 H 4.0 H Albumin/Globulin Ratio 0.7 L 0.8 L Procalcitonin 03/17/21 03/17/21 06:45 06:45 WBC 11.5 H RBC 4.26 L Hgb 13.3 L Hct 40.0 L Neut % (Auto) 90.6 H Lymph % (Auto) 5.0 L Lymph # (Auto) 0.57 L Absolute Neutrophils 10.44 H Sodium Chloride Carbon Dioxide 19 L BUN 60 H Creatinine 2.3 H Glucose 237 H Uric Acid Calcium 8.4 L AST 107 H ALT 46 H Lactate Dehydrogenase C-Reactive Protein Albumin 2.8 L Globulin 4.3 H Albumin/Globulin Ratio 0.7 L Procalcitonin Meds: Medications Acetaminophen (Acetaminophen 325 Mg Tablet) 650 mg PO Q6HP PRN; Protocol PRN Reason: Per Pain Protocol/Fever > 101 Last Admin: 03/18/21 08:43 Dose: 650 mg Documented by: Albuterol/Ipratropium (Ipratropium/Albuterol 3 Ml Ampul.Neb) 3 ml NEB Q4HRT PRN PRN Reason: Wheezing Amlodipine Besylate (Amlodipine 10 Mg Tablet) 10 mg PO DAILY [facility] Last Admin: 03/19/21 09:23 Dose: Not Given Documented by: Aspirin (Aspirin 81 Mg Tab.Chew) 81 mg PO DAILY [facility] Last Admin: 03/19/21 09:22 Dose: Not Given Documented by: Atenolol (Atenolol 25 Mg Tablet) 25 mg PO QDAY [facility] Last Admin: 03/19/21 09:23 Dose: Not Given Documented by: Dexamethasone (Dexamethasone 10 Mg/Ml Vial) 6 mg IV DAILY [facility] Last Admin: 03/19/21 09:51 Dose: 6 mg Documented by: Dextrose (Dextrose 50% 50 Ml Vial) 0 ml IV UD PRN PRN Reason: Hypoglycemia Dextrose (Dextrose 50% 50 Ml Vial) 0 ml IV UD PRN PRN Reason: Hypoglycemia Diagnostic Test (Pha) (Accu-Chek 1 Each Strip) 1 each FS ACHS [facility] Last Admin: 03/19/21 11:58 Dose: 1 each Documented by: Docusate Sodium (Docusate Sodium 100 Mg Capsule) 100 mg PO BID [facility] Last Admin: 03/19/21 09:22 Dose: Not Given Documented by: Gabapentin (Gabapentin 100 Mg Capsule) 100 mg PO TID [facility] Last Admin: 03/19/21 14:34 Dose: Not Given Documented by: Glucose (Dextrose 31 Gm Oral.Susp) 15 gm PO PRN PRN PRN Reason: Hypoglycemia Glucose (Dextrose 31 Gm Oral.Susp) 15 gm PO PRN PRN PRN Reason: Hypoglycemia Guaifenesin (Guaifenesin/Dextromethorphan Oral [place]) 10 ml PO Q4HP PRN PRN Reason: Cough Heparin Sodium (Porcine) (Heparin 5,000 Unit/Ml Vial) 5,000 unit SQ Q12 [facility] Last Admin: 03/19/21 09:51 Dose: 5,000 unit Documented by: Hydromorphone HCl (Hydromorphone 0.5 Mg/0.5 Ml Syringe) 0.5 mg IV Q4HP PRN; Protocol PRN Reason: Per Pain Protocol Last Admin: 03/19/21 12:54 Dose: 0.5 mg Documented by: REMDESIVIR 100 mg/ Sodium (Chloride) 250 mls @ 500 mls/hr IV Q24H [facility] Stop: 03/21/21 09:01 Last Infusion: 03/19/21 11:13 Dose: Infused Documented by: Calcium Gluconate 4.65 meq/Magnesium Sulfate 8.12 meq/Potassium Phosphate 20 meq/Multivitamins/Minerals 10 ml/Amino Acids 1,026.5455 mls @ 35 mls/hr IV DAILY@1600 [facility] Stop: 03/19/21 15:59 Last Admin: 03/18/21 20:02 Dose: Not Given Documented by: Fat Emulsion Intravenous (Intralipid 20%) 250 mls @ 25 mls/hr IV MoWeFr@1600 [facility] Acetaminophen (Ofirmev) 1,000 mg in 100 mls @ 200 mls/hr IV Q8HP PRN; Protocol PRN Reason: Pain Last Infusion: 03/19/21 00:09 Dose: Infused Documented by: Dextrose/Sodium Chloride (Dextrose 5%-Ns Iv Solution) 1,000 mls @ 125 mls/hr IV .Q8H [facility] Last Admin: 03/19/21 11:47 Dose: 125 mls/hr Documented by: Calcium Gluconate 4.65 meq/Magnesium Sulfate 8.12 meq/Potassium Phosphate 20 meq/Multivitamins/Minerals 10 ml/Amino Acids 1,026.5455 mls @ 35 mls/hr IV DAILY@1600 [facility] Insulin Glargine (Insulin Glargine, Human 1 Unit/0.01 Ml) 10 unit SQ [facility] Last Admin: 03/18/21 20:54 Dose: Not Given Documented by: Insulin Human Lispro (Insulin Lispro 1 Unit/0.01 Ml Unit) 0 unit SQ [facility]; Protocol Last Admin: 03/19/21 11:58 Dose: Not Given Documented by: Lactulose (Lactulose 20 Gm/30 Ml Oral.[place]) 10 gm PO DAILYP PRN PRN Reason: Constipation Ondansetron HCl (Ondansetron 4 Mg/2 Ml Vial) 4 mg IV Q4HP PRN; Protocol PRN Reason: Nausea And Vomiting Last Admin: 03/17/21 21:57 Dose: 4 mg Documented by: Pantoprazole Sodium (Pantoprazole 40 Mg Tablet) 40 mg PO QAMAC [facility] Last Admin: 03/19/21 09:24 Dose: Not Given Documented by: Senna (Sennosides 1 Tablet) 2 tab PO HSP PRN PRN Reason: Constipation Simvastatin (Simvastatin 40 Mg Tablet) 40 mg PO HS [facility] Last Admin: 03/18/21 20:55 Dose: Not Given Documented by: Sodium Chloride (0.9 % Sodium Chloride 10 Ml Syringe) 10 ml IV Q8 [facility] Last Admin: 03/19/21 14:34 Dose: Not Given Documented by: Tamsulosin HCl (Tamsulosin 0.4 Mg Capsule) 0.4 mg PO DAILY [facility] Last Admin: 03/19/21 09:24 Dose: Not Given Documented by: A/P Narrative A/P Narrative: A/P Narrative: Assessment: Mr. Thornton is a 75 year old M history of CAD status post 9 stent placements, type 2 diabetes mellitus, bladder cancer with right kidney involvement status post right nephrectomy who presented with a one week history of general body weakness, nonproductive cough, and decreased appetite and found to have severe COVID-19 pneumonia. #Acute hypoxic respiratory failure: -on 80% fio2 on vapotherm #Severe COVID-19 pneumonia: #Acute kidney injury on likely CKD: improved #Hypernatremia: #Type 2 diabetes mellitus #CAD s/p multiple stents Plan -Dexamethasone and Remdesivir. -Oxygen supplementation. -Lantus and SSI-high. -will make sure riders are all hypotonic soln. d5w until sodium 145 - communication order in place. -Follow sodium -Holding Lasix for TESSIE. -Continue other essential home meds. 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
[2021-03-19] MEDS ORDERED: FAT EMULSION 20% 250 ML IV SCH (16:00)
[2021-03-19] MEDS ORDERED: [UNRECOGNIZED DRUG - OTHER] IV SCH ×2 (16:00→18:00)
[2021-03-19] MEDS ORDERED: POTASSIUM PHOSPHATE IV SCH ×2 (16:00→18:00)
[2021-03-19] MEDS ORDERED: CALCIUM GLUCONATE IV SCH ×2 (16:00→18:00)
[2021-03-19] MEDS ORDERED: MAGNESIUM SULFATE IV SCH ×2 (16:00→18:00)
[2021-03-19] MEDS ORDERED: LORazepam 2 MG/ML VIAL IV ONE (16:42)
[2021-03-19] MEDS ORDERED: 0.9 % SODIUM CHLORIDE 500 ML IV ONE (19:30)
--- NOTE | 2021-03-19 20:41 | Procedure Note ---
PROC Central Line Placement Right SC: Consent obtained: verbal consent Date of Procedure: 03/19/21 Time out performed: Yes Patient placed on monitor/pulse ox: Yes MD prep: mask, sterile gown, sterile gloves and cap Central line prep: 2% Chlorhexidine scrub Local anesthesia used: lidocaine 1% Amount of anesthesia used (mls): 5 Ultrasound used for placement: Yes Additional comments: Failed attempted to place a right subclavian central line with ultrasound guidance.
[2021-03-19] MEDS: DEXTROSE 5% IN WATER 1,000 ML IV SCH (20:46)
[2021-03-19] MEDS: INSULIN GLARGINE, HUMAN 1 UNIT/0.01 ML SQ SCH (21:29)
[2021-03-19] MEDS ORDERED: CEFEPIME 1 GM VIAL ONE (21:34)
[2021-03-19] MEDS: CEFEPIME 1 GM VIAL IV SCH (21:37)
[2021-03-19] MEDS: SIMVASTATIN 40 MG TABLET PO SCH (21:38)
[2021-03-20] MEDS: DEXTROSE 5% IN WATER 1,000 ML IV SCH (00:57)
[2021-03-20] MEDS: HYDROmorphone 0.5 MG/0.5 ML SYRINGE IV PRN ×2 (01:07→08:27)
[2021-03-20] MEDS: INSULIN LISPRO 1 UNIT/0.01 ML UNIT SQ SCH ×2 (07:59→13:04)
[2021-03-20] MEDS ORDERED: 0.45 % SODIUM CHLORIDE 1,000 ML IV SCH ×2 (08:00→10:22)
[2021-03-20] MEDS: CEFEPIME 1 GM VIAL IV SCH (08:32)
[2021-03-20] MEDS: PANTOPRAZOLE 40 MG TABLET PO SCH (08:47)
[2021-03-20 08:49] LABS: Basophils # (Auto) 0.07 K/mcL (0.00-0.30); Basophils % (Auto) 0.4 % (0.0-2.0); Eosinophils # (Auto) 0 K/mcL (0.00-0.70); Eosinophils % (Auto) 0 % (0.0-7.0); Hematocrit 43.9 % (40.1-51.0); Hemoglobin 13.6 g/dL (13.7-17.5); Lymphocytes # (Auto) 0.32 K/mcL (1.50-4.80); Lymphocytes % (Auto) 1.8 % (15.5-49.0); Mean Cell Volume 97.8 fL (80.0-100.0); Mean Platelet Volume 10.5 fL (7.4-10.4); Monocytes # (Auto) 0.83 K/mcL (0.10-0.90); Monocytes % (Auto) 4.8 % (1.0-12.0); Platelet Count 175 K/mcL (140-440); RBC 4.49 M/mcL (4.63-6.08); Red Cell Distribution Width 14.5 % (11.5-14.5); WBC 17.4 K/mcL (4.5-11.0)
[2021-03-20] MEDS: 0.9 % SODIUM CHLORIDE 10 ML SYRINGE IV SCH ×2 (08:49→18:29)
[2021-03-20 08:57] LABS: ALT/SGPT 50 U/L (<40); AST/SGOT 47 U/L (<40); Albumin 2.9 gm/dL (3.2-5.2); Albumin/Globulin Ratio 0.8 (1.0-2.3); Alkaline Phosphatase 89 U/L (39-117); Bilirubin,Direct < 0.2 mg/dL (0-0.3); Bilirubin,Total 0.3 mg/dL (0.1-1.0); Blood Urea Nitrogen 56 mg/dL (8-23); Carbon Dioxide 21 mmol/L (22-30); Chloride 114 mmol/L (96-108); Globulin 3.8 gm/dL (2.2-3.7); Glomerular Filtration Rate 33; Glucose 245 mg/dL (70-105); Lactate Dehydrogenase 820 U/L (135-225); Phosphorous 3.6 mg/dL (2.5-4.5); Triglycerides 99 mg/dL (<150); Uric Acid 12.5 mg/dL (2.5-8.0)
[2021-03-20] MEDS: amLODIPine 10 MG TABLET PO SCH (09:22)
[2021-03-20] MEDS: ASPIRIN 81 MG TAB.CHEW PO SCH (09:22)
[2021-03-20] MEDS: DOCUSATE SODIUM 100 MG CAPSULE PO SCH (09:22)
[2021-03-20] MEDS: GABAPENTIN 100 MG CAPSULE PO SCH ×2 (09:22→18:30)
[2021-03-20] MEDS: TAMSULOSIN 0.4 MG CAPSULE PO SCH (09:22)
[2021-03-20] MEDS: ATENOLOL 25 MG TABLET PO SCH (09:23)
[2021-03-20] MEDS: HEPARIN 5,000 UNIT/ML VIAL SQ SCH (09:38)
[2021-03-20] MEDS: DEXAMETHASONE 10 MG/ML VIAL IV SCH (09:38)
[2021-03-20] MEDS: REMDESIVIR 100 MG in 0.9 % SODIUM CHLORIDE 250 ML IV SCH (09:39)
[2021-03-20] MEDS ORDERED: CALCIUM GLUCONATE IV SCH (11:00)
[2021-03-20] MEDS ORDERED: [UNRECOGNIZED DRUG - OTHER] IV SCH (11:00)
[2021-03-20] MEDS ORDERED: POTASSIUM PHOSPHATE IV SCH (11:00)
[2021-03-20] MEDS ORDERED: MAGNESIUM SULFATE IV SCH (11:00)
[2021-03-20] MEDS: fentaNYL 100 MCG/2 ML VIAL IV PRN ×2 (11:38→14:11)
[2021-03-20] MEDS ORDERED: DILTIAZEM 125 MG in DEXTROSE 5% IN WATER 100 ML IV SCH (14:00)
--- NOTE | 2021-03-20 15:00 | Internal Med Progress Note ---
SUBJECTIVE Subjective Patient information: Note initiated : 03/20/21 at 2:54 pm Service Date, if different from initiated Date: [] Patient: Toni Thornton a 75 y/o M admitted on 03/15/21 for Shortness of breath. Chief Complaint: [] Interval history: Mr. Thornton is a 75 year old M history of CAD status post 9 stent placement, type 2 diabetes mellitus, bladder cancer with right kidney involvement status post right nephrectomy, presenting with 1 week history of general body weakness, nonproductive cough, and decreased appetite. He is not being vaccinated against Covid pneumonia. Over the past week, he experienced general body weakness, myalgia, nonproductive cough, and decreased appetite. He denied shortness of breath fever, chills, or diaphoresis. Signs at ED presentation significant for tachypnea with rate of breathing in the mid 30s as well as fever with T-max of 39.6. Oxygen desaturated to the 80s and he was being placed on nonrebreather oxygen. Labs significant for lack of leukocytosis with WBC 5.8. Serum BUN/creatinine 724 and 3.5, respectively with unknown baseline. Serum glucose level 64. Chest x-ray showing typical findings of Covid pneumonia. 03/16: Afebrile overnight. Been on CPAP. Much improved degree of SOB. c/o non productive cough without sputum production. Denies any respiratory wheezing. Denies any fever or chills. Denies any chest pain. 03/17: Afebrile overnight. Been on CPAP now with FiO2 60%. c/o mild SOB. c/o nonproductive cough without sputum production. Denies any respiratory wheezing. Denies any fever or chills. Denies any chest pain. 03/18: On BiPAP, weaned to FiO2 50%, sodium trending up, the patient has not eaten in several days. 03/19: Goals of care discussed with the patient's family, the patient's code status was changed to DNR according to their wishes. 03/20: Increasing FiO2 requirement to 80%, intermittent atrial fibrillation with RVR seems to have improved some after IV fluid boluses. Continued on D5 for hypernatremia. Discussed grim prognosis with the patient's sons and his , family is considering transitioning the patient to comfort care. Physical exam Head: Atraumatic, normal inspection. Eyes: normal appearance, no scleral icterus. Neck: full ROM Respiratory: BiPAP, does not appear to be in respiratory distress. Cardiovascular: tachycardia rate, irregular rhythm, S1, S2. GI/Abdominal: soft, nontender, no guarding. Extremities: full range of motion, nontender. Neurological: CN II-XII intact, intact motor, intact sensation. Psychiatric: confused Skin: warm, normal color Constitutional Vitals: Vital Signs Temp Pulse Resp BP Pulse Ox 99.2 F H 115 H 25 H 132/80 93 03/20/21 12:00 03/20/21 11:56 03/20/21 14:01 03/20/21 14:01 03/20/21 14:01 Period Temp Pulse Resp BP Sys/[place] Pulse Ox Last 24 Hr 97.2 F-99.2 F 69-115 15-32 108-156/52-106 86-97 Intake and Output 03/20/21 03/20/21 03/20/21 05:59 13:59 21:59 Intake Total 17 3690 Output Total 350 920 Balance -333 2770 Intake & Output: Intake & Output 03/20/21 03/20/21 03/20/21 05:59 13:59 21:59 Intake Total 17 3690 Output Total 350 920 Balance -333 2770 Intake: IV 17 3690 Sodium Chloride 0.45% 1,000 ml 2000 @ Wide Open IV .Q0M [facility] Rx#: [id number] Sodium Chloride 0.9% 500 ml @ 17 Wide Open IV [facility] Rx#: [id number] Dextrose 5% in Water 1,000 ml @ 1440 150 mls/hr IV .Q6H40M [facility] Rx#: [id number] Veklury 100 mg In Sodium 250 Chloride 0.9% 250 ml @ 500 mls/ hr IV Q24H [facility] Rx#:[id number] Output: Urine Catheter Amount 350 920 Other: Urine Appearance Clear Clear Uretheral (Anthony) Clear Urine Color Bright Yellow Dark Yellow Uretheral (Anthony) Bright Yellow Urine Odor Normal OBJ DATA Labs CBC & Chem 7: 03/20/21 05:23 03/20/21 12:00 Labs: Abnormal Lab Results 03/20/21 03/20/21 03/20/21 12:00 05:23 05:22 WBC 17.4 H RBC 4.49 L Hgb 13.6 L MPV 10.5 H Neut % (Auto) 93.0 H Lymph % (Auto) 1.8 L Lymph # (Auto) 0.32 L Absolute Neutrophils 16.22 H Sodium 146 H 151 H Chloride 114 H Carbon Dioxide 21 L BUN 56 H Creatinine 1.9 H Glucose 245 H Uric Acid 12.5 H Calcium 8.0 L AST 47 H ALT 50 H Lactate Dehydrogenase 820 H C-Reactive Protein Albumin 2.9 L Globulin 3.8 H Albumin/Globulin Ratio 0.8 L Procalcitonin 03/19/21 03/19/21 03/19/21 23:34 18:09 11:52 WBC RBC Hgb MPV Neut % (Auto) Lymph % (Auto) Lymph # (Auto) Absolute Neutrophils Sodium 151 H 152 H Chloride Carbon Dioxide BUN Creatinine Glucose Uric Acid Calcium AST ALT Lactate Dehydrogenase C-Reactive Protein 6.10 H Albumin Globulin Albumin/Globulin Ratio Procalcitonin 03/19/21 03/19/21 03/19/21 11:52 11:52 05:50 WBC RBC Hgb MPV Neut % (Auto) Lymph % (Auto) Lymph # (Auto) Absolute Neutrophils Sodium 152 H 150 H Chloride 114 H Carbon Dioxide 21 L BUN 62 H Creatinine 1.9 H Glucose 119 H Uric Acid Calcium 8.5 L AST 70 H ALT 51 H Lactate Dehydrogenase C-Reactive Protein Albumin 3.0 L Globulin 4.1 H Albumin/Globulin Ratio 0.7 L Procalcitonin 0.26 H 03/19/21 03/19/21 03/18/21 05:17 05:16 13:24 WBC 18.5 H RBC 4.45 L Hgb MPV Neut % (Auto) 90.4 H Lymph % (Auto) 4.6 L Lymph # (Auto) 0.85 L Absolute Neutrophils 16.73 H Sodium 151 H 147 H Chloride 115 H Carbon Dioxide 21 L BUN 61 H Creatinine 2.0 H Glucose 118 H Uric Acid 13.2 H Calcium 8.5 L AST 70 H ALT 50 H Lactate Dehydrogenase 994 H C-Reactive Protein Albumin 3.1 L Globulin 4.0 H Albumin/Globulin Ratio 0.8 L Procalcitonin 03/18/21 03/18/21 03/18/21 07:04 07:04 07:04 WBC 15.8 H RBC 4.47 L Hgb MPV Neut % (Auto) 89.6 H Lymph % (Auto) 4.7 L Lymph # (Auto) 0.74 L Absolute Neutrophils 14.14 H Sodium Chloride Carbon Dioxide BUN Creatinine Glucose Uric Acid Calcium AST ALT Lactate Dehydrogenase C-Reactive Protein 8.50 H Albumin Globulin Albumin/Globulin Ratio Procalcitonin 0.20 H 03/18/21 03/17/21 07:03 20:47 WBC RBC Hgb MPV Neut % (Auto) Lymph % (Auto) Lymph # (Auto) Absolute Neutrophils Sodium 146 H Chloride 111 H Carbon Dioxide 21 L 20 L BUN 59 H 54 H Creatinine 1.9 H 1.9 H Glucose 143 H 230 H Uric Acid Calcium AST 79 H 91 H ALT 44 H 44 H Lactate Dehydrogenase C-Reactive Protein Albumin 3.1 L 3.0 L Globulin 4.2 H 4.0 H Albumin/Globulin Ratio 0.7 L 0.8 L Procalcitonin Meds: Medications Acetaminophen (Acetaminophen 325 Mg Tablet) 650 mg PO Q6HP PRN; Protocol PRN Reason: Per Pain Protocol/Fever > 101 Last Admin: 03/18/21 08:43 Dose: 650 mg Documented by: Albuterol/Ipratropium (Ipratropium/Albuterol 3 Ml Ampul.Neb) 3 ml NEB Q4HRT PRN PRN Reason: Wheezing Amlodipine Besylate (Amlodipine 10 Mg Tablet) 10 mg PO DAILY [facility] Last Admin: 03/20/21 09:22 Dose: Not Given Documented by: Aspirin (Aspirin 81 Mg Tab.Chew) 81 mg PO DAILY [facility] Last Admin: 03/20/21 09:22 Dose: Not Given Documented by: Atenolol (Atenolol 25 Mg Tablet) 25 mg PO QDAY [facility] Last Admin: 03/20/21 09:23 Dose: Not Given Documented by: Cefepime HCl (Cefepime 1 Gm Vial) 1 gm IV Q12H [facility]; Protocol Last Admin: 03/20/21 08:32 Dose: 1 gm Documented by: Dexamethasone (Dexamethasone 10 Mg/Ml Vial) 6 mg IV DAILY [facility] Last Admin: 03/20/21 09:38 Dose: 6 mg Documented by: Dextrose (Dextrose 50% 50 Ml Vial) 0 ml IV UD PRN PRN Reason: Hypoglycemia Dextrose (Dextrose 50% 50 Ml Vial) 0 ml IV UD PRN PRN Reason: Hypoglycemia Diagnostic Test (Pha) (Accu-Chek 1 Each Strip) 1 each FS ACHS [facility] Last Admin: 03/20/21 11:30 Dose: 1 each Documented by: Docusate Sodium (Docusate Sodium 100 Mg Capsule) 100 mg PO BID [facility] Last Admin: 03/20/21 09:22 Dose: Not Given Documented by: Fentanyl (Fentanyl 100 Mcg/2 Ml Vial) 25 mcg IV Q1HP PRN; Protocol PRN Reason: Per Pain Protocol Last Admin: 03/20/21 14:11 Dose: 25 mcg Documented by: Gabapentin (Gabapentin 100 Mg Capsule) 100 mg PO TID [facility] Last Admin: 03/20/21 09:22 Dose: Not Given Documented by: Glucose (Dextrose 31 Gm Oral.Susp) 15 gm PO PRN PRN PRN Reason: Hypoglycemia Glucose (Dextrose 31 Gm Oral.Susp) 15 gm PO PRN PRN PRN Reason: Hypoglycemia Guaifenesin (Guaifenesin/Dextromethorphan Oral [place]) 10 ml PO Q4HP PRN PRN Reason: Cough Heparin Sodium (Porcine) (Heparin 5,000 Unit/Ml Vial) 5,000 unit SQ Q12 [facility] Last Admin: 03/20/21 09:38 Dose: 5,000 unit Documented by: Hydromorphone HCl (Hydromorphone 0.5 Mg/0.5 Ml Syringe) 0.5 mg IV Q4HP PRN; Protocol PRN Reason: Per Pain Protocol Last Admin: 03/20/21 08:27 Dose: 0.5 mg Documented by: REMDESIVIR 100 mg/ Sodium (Chloride) 250 mls @ 500 mls/hr IV Q24H [facility] Stop: 03/21/21 09:01 Last Infusion: 03/20/21 10:09 Dose: Infused Documented by: Acetaminophen (Ofirmev) 1,000 mg in 100 mls @ 200 mls/hr IV Q8HP PRN; Protocol PRN Reason: Pain Last Infusion: 03/19/21 00:09 Dose: Infused Documented by: Fat Emulsion Intravenous (Intralipid 20%) 250 mls @ 25 mls/hr IV TuThSa@1600 [facility] Calcium Gluconate 4.65 meq/Magnesium Sulfate 8.12 meq/Potassium Phosphate 20 meq/Multivitamins/Minerals 10 ml/Amino Acids 1,026.5455 mls @ 35 mls/hr IV DAILY@1100 [facility] Last Admin: 03/20/21 13:05 Dose: Not Given Documented by: Sodium Chloride (Sodium Chloride 0.45%) 1,000 mls @ 0 mls/hr IV .Q0M [facility] Last Infusion: 03/20/21 13:15 Dose: Infused Documented by: Diltiazem HCl 125 mg/ Dextrose 125 mls @ 5 mls/hr IV Q12H [facility]; Protocol Insulin Glargine (Insulin Glargine, Human 1 Unit/0.01 Ml) 10 unit SQ [facility] Last Admin: 03/19/21 21:29 Dose: Not Given Documented by: Insulin Human Lispro (Insulin Lispro 1 Unit/0.01 Ml Unit) 0 unit SQ ACHS [facility]; Protocol Last Admin: 03/20/21 13:04 Dose: Not Given Documented by: Lactulose (Lactulose 20 Gm/30 Ml Oral.[place]) 10 gm PO DAILYP PRN PRN Reason: Constipation Ondansetron HCl (Ondansetron 4 Mg/2 Ml Vial) 4 mg IV Q4HP PRN; Protocol PRN Reason: Nausea And Vomiting Last Admin: 03/17/21 21:57 Dose: 4 mg Documented by: Pantoprazole Sodium (Pantoprazole 40 Mg Vial) 40 mg IV QAMAC [facility] Senna (Sennosides 1 Tablet) 2 tab PO HSP PRN PRN Reason: Constipation Simvastatin (Simvastatin 40 Mg Tablet) 40 mg PO [facility] Last Admin: 03/19/21 21:38 Dose: Not Given Documented by: Sodium Chloride (0.9 % Sodium Chloride 10 Ml Syringe) 10 ml IV Q8 [facility] Last Admin: 03/20/21 08:49 Dose: Not Given Documented by: Tamsulosin HCl (Tamsulosin 0.4 Mg Capsule) 0.4 mg PO DAILY [facility] Last Admin: 03/20/21 09:22 Dose: Not Given Documented by: A/P Narrative A/P Narrative: Assessment: Mr. Thornton is a 75 year old M history of CAD status post 9 stent placements, type 2 diabetes mellitus, bladder cancer with right kidney involvement status post right nephrectomy who presented with a one week history of general body weakness, nonproductive cough, and decreased appetite and found to have severe COVID-19 pneumonia. #Acute hypoxic respiratory failure #Severe COVID-19 pneumonia #Atrial fibrillation w/ RVR #Acute kidney injury #Hypernatremia #Type 2 diabetes mellitus #CAD s/p multiple stents #Poor prognosis Plan -Dexamethasone and Remdesivir. -Oxygen supplementation. -Empiric Cefepime. -Cardizem infusion for afib rate control. -Lantus and SSI-high. -Trend sodium. -Holding home Lasix. -Continue other essential home meds but currently NPO. -Unable to place PICC or central line for TPN. -DVT ppx: Heparin SQ -Code status: DNR -Disposition: poor prognosis, family will probably transition the patient to comfort cares soon. Time Spent With Patient Time: Total time spent is greater than 50% in coordination of care (as documented) at patient's floor/unit and/or counseling patient: QUALITY VTE Deep Vein Thrombosis/Pulmonary Embolism Present on Admission: No
[2021-03-20] MEDS ORDERED: HYDROmorphone 1 MG/ML SYRINGE IV PRN ×2 (15:26→15:36)
[2021-03-20] MEDS ORDERED: LORazepam 2 MG/ML VIAL IV PRN ×2 (15:26→15:36)
[2021-03-20] MEDS ORDERED: ALBUTEROL SULFATE 2.5 MG/3 ML NEBULIZER NEB PRN ×2 (15:26→15:36)
[2021-03-20] MEDS ORDERED: ONDANSETRON 4 MG/2 ML VIAL IV PRN ×2 (15:26→15:36)
[2021-03-20] MEDS ORDERED: DEXTROSE 50% 50 ML VIAL IV PRN (15:36)
[2021-03-20] MEDS ORDERED: FAT EMULSION 20% 250 ML IV SCH (16:00)
--- NOTE | 2021-03-20 19:32 | EKG ---
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
[2021-03-20] MEDS ORDERED: 0.9 % SODIUM CHLORIDE 10 ML SYRINGE IV SCH ×2 (22:00)
[2021-03-21] MEDS ORDERED: PANTOPRAZOLE 40 MG VIAL IV SCH (07:30)
[2021-03-21] MEDS ORDERED: [UNRECOGNIZED DRUG - OTHER] IV SCH (11:00)
[2021-03-21] MEDS ORDERED: MAGNESIUM SULFATE IV SCH (11:00)
[2021-03-21] MEDS ORDERED: POTASSIUM PHOSPHATE IV SCH (11:00)
[2021-03-21] MEDS ORDERED: CALCIUM GLUCONATE IV SCH (11:00)
--- NOTE | 2021-03-21 16:28 | Death Note ---
Discharge Sum: Prov Provider Patient information: Note initiated : 03/21/21 at 4:26 pm Service Date, if different from initiated Date: [] Patient: Toni Thornton a 75 y/o M admitted on 03/15/21 for Shortness of breath. Chief Complaint: [] Primary care physician: Tristan Palencia Consults: 03/15/21 Consult to Physician [CONS] Stat Comment: Consulting Provider: Nabeel Rogers Reason For Exam: Physician to Consult 03/20/21 17:02 Consult to Physician [CONS] Routine Comment: Consulting Provider: SightLeslie Reason For Exam: Physician to Consult Discharge Sum: Diag Contributing Factors (1) Pneumonia due to 2019 novel coronavirus: (2) Stage 2 acute kidney injury: (3) Hypoglycemia associated with type 2 diabetes mellitus: (4) Anemia, normocytic normochromic: (5) CAD (coronary artery disease): (6) Acute respiratory failure with hypoxia: Discharge Sum: Summary Date and Time Date of admission: 03/15/21 17:18 Summary Details: Mr. Thornton is a 75 year old M history of CAD status post 9 stent placement, type 2 diabetes mellitus, bladder cancer with right kidney involvement status post right nephrectomy, presenting with 1 week history of general body weakness, nonproductive cough, and decreased appetite. He is not being vaccinated against Covid pneumonia. Over the past week, he experienced general body weakness, myalgia, nonproductive cough, and decreased appetite. He denied shortness of breath fever, chills, or diaphoresis. Signs at ED presentation significant for tachypnea with rate of breathing in the mid 30s as well as fever with T-max of 39.6. Oxygen desaturated to the 80s and he was being placed on nonrebreather oxygen. Labs significant for lack of leukocytosis with WBC 5.8. Serum BUN/creatinine 724 and 3.5, respectively with unknown baseline. Serum glucose level 64. Chest x-ray showing typical findings of Covid pneumonia. 03/16: Afebrile overnight. Been on CPAP. Much improved degree of SOB. c/o nonproductive cough without sputum production. Denies any respiratory wheezing. Denies any fever or chills. Denies any chest pain. 03/17: Afebrile overnight. Been on CPAP now with FiO2 60%. c/o mild SOB. c/o nonproductive cough without sputum production. Denies any respiratory wheezing. Denies any fever or chills. Denies any chest pain. 03/18: On BiPAP, weaned to FiO2 50%, sodium trending up, the patient has not eaten in several days. 03/19: Goals of care discussed with the patient's family, the patient's code status was changed to DNR according to their wishes. 03/20: Increasing FiO2 requirement to 80%, intermittent atrial fibrillation with RVR seems to have improved some after IV fluid boluses. Continued on D5 for hypernatremia. Discussed grim prognosis with the patient's sons and his , family considering transitioning the patient to comfort care. The patient's three sons came to the hospital to say goodbye at the bedside. After the sons had visited the patient he was started on comfort care and soon thereafter. Additional Data Confirmation of as documented by pronouncing clinician: no pulse and no respirations Family: at bedside Attending physician: Nabeel Rogers MD
== END 2021-03-20 19:08 | disposition expired | DRG 177 ==
LOC: ED 14:06 → ICU 17:18
PROVIDERS: ADMIT Internal Medicine; ATTEND Internal Medicine